=== PATIENT | female | born 1945 | race Caucasian/White ===

== ENCOUNTER 2022-01-26 10:42 | Emergency (ER) | payer MEDICARE, OTHER ==
[~2022-01-26] VITALS: Ht 165.1 cm; Wt 47.6 kg
[2022-01-26 10:42] VITALS: BP 139/86
[~2022-01-26 10:42] MED LIST: ACET-868 PO; ALBU2.5V38 IH; ASCO500C6 PO; DEXT1CAP3 PO; DOCU250C30 PO; IPRA0.2S9 IH; LACT20SO4 PO; LATA2.5D2 EACHEYE; LEVE250T2 PO; MAG30ORA PO; MAGN400O21 PO; MULT-213 PO; NA P133E RC; OXCA300T4 PO; QUET25TA PO; QUET50TA PO
--- NOTE | 2022-01-26 10:59 | NUR ---
RAYMUNDO 87, ENDORSED BY NURSE AT [facility] THAT PT IS "SLEEPIER THAN USUAL" VSS UPON ARRIVAL. PLACED ON BED, NOT RESPONDING TO VERBAL STIMULI- RESPONDING TO PAINFUL STIMULI, BREATHING EVEN AND UNLABORED SATURATING AT 100%RA.
--- NOTE | 2022-01-26 11:00 | NUR ---
PT DNR STATUS, NO ADVANCED DIRECTIVE. POLST PLACED IN THE CHART.
--- NOTE | 2022-01-26 11:05 | NUR ---
DR GUTIERREZ AT BEDSIDE FOR EVAL
--- NOTE | 2022-01-26 11:09 | NUR ---
IV ESTABLISHED R HAND 20G.
--- NOTE | 2022-01-26 11:11 | NUR ---
LUMBER STACKER OPERATOR AT BEDSIDE
--- NOTE | 2022-01-26 11:18 | NUR ---
COVID TEST COLLECTED AND SENT
[2022-01-26 11:39] LABS: BASOPHILS % (AUTO) 0.5 % (0.0-2.0); EOSINOPHILS % (AUTO) 13.2 % (0.0-6.0); HEMATOCRIT 32 % (33-45); HEMOGLOBIN 10.6 g/dL (11.5-14.8); LYMPHOCYTES # (AUTO) 1.4 K/uL (0.8-4.8); LYMPHOCYTES % (AUTO) 28.1 % (20.0-44.0); MEAN CORPUSCULAR HGB CONC 33 g/dl (31.0-36.0); MEAN CORPUSCULAR VOLUME 93 fL (82-100); MONOCYTES # (AUTO) 0.6 K/uL (0.1-1.30); MONOCYTES % (AUTO) 11.7 % (2.0-12.0); NEUTROPHILS # (AUTO) 2.4 K/uL (1.8-8.9); NEUTROPHILS % (AUTO) 46.5 % (43.0-81.0); PLATELET COUNT (AUTO) 202 K/uL (150-450); RED BLOOD CELL COUNT(AUTO) 3.46 MIL/uL (4.0-5.2); WHITE BLOOD COUNT (AUTO) 5.1 K/uL (4.3-11.0)
[2022-01-26] MEDS ORDERED: POLY15DR40 EACHEYE (11:53)
[2022-01-26] MEDS ORDERED: APIX5TAB PO (11:53)
[2022-01-26] MEDS ORDERED: LACT1CAP71 PO (11:53)
[2022-01-26] MEDS ORDERED: CRAN425C6 PO (11:53)
[2022-01-26] MEDS ORDERED: CALC1TAB30 PO (11:53)
[2022-01-26] MEDS ORDERED: GUAI5SYR PO (11:54)
[2022-01-26] MEDS ORDERED: CYCL30DR EACHEYE (11:54)
[2022-01-26] MEDS ORDERED: OMEG100037 PO (11:54)
[2022-01-26] MEDS ORDERED: ACET-868 PO (11:54)
[2022-01-26] MEDS ORDERED: LISI10TA29 PO (11:54)
[2022-01-26] MEDS ORDERED: CRAN3875 PO (11:54)
[2022-01-26] MEDS ORDERED: MELA3TAB41 PO (11:54)
[2022-01-26 11:59] LABS: ALANINE AMINOTRANSFERASE 59 U/L (12-78); ALBUMIN 3.2 g/dL (3.4-5.0); ALKALINE PHOSPHATASE 241 U/L (46-116); ASPARTATE AMINOTRANSFERASE 54 U/L (15-37); BILIRUBIN,DIRECT 0.2 mg/dL (0.0-0.2); BILIRUBIN,TOTAL 0.4 mg/dL (0.2-1.0); CALCIUM, SERUM 8.8 mg/dL (8.5-10.1); CARBON DIOXIDE 23 mmol/L (21-32); CHLORIDE 109 mmol/L (98-107); GLUCOSE 98 mg/dL (74-106); POTASSIUM 4.4 mmol/L (3.5-5.1); SODIUM SERUM 141 mmol/L (136-145); TOTAL PROTEIN, SERUM 6.5 g/dL (6.4-8.2); UREA NITROGEN, BLOOD 37 mg/dL (7-18)
--- NOTE | 2022-01-26 12:57 | NUR ---
[facility] CALLED FOR TRANSPORT, ETA 60 MIN PER ANGIE.
--- NOTE | 2022-01-26 12:58 | NUR ---
URINE SA,PLE SENT TO LAB
--- NOTE | 2022-01-26 13:21 | NUR ---
PT REPORT GIVEN TO SCOTTY MONGE PIPING DESIGNER AT [facility].
[2022-01-26 13:42] LABS: BILIRUBIN,URINE NEGATIVE (NEGATIVE); COLOR,URINE YELLOW (YELLOW); LEUKOCYTE ESTERASE ,URINE 2+ (NEGATIVE); NITRITE, URINE POSITIVE (NEGATIVE); PH,URINE 5.5 (5.0-8.0); PROTEIN,URINE NEGATIVE (NEGATIVE); UGLUCOSE NEGATIVE (NEGATIVE); UROBILINOGEN,URINE 0.2 EU/dL (0.2)
--- NOTE | 2022-01-26 13:45 | NUR ---
EMT AT BEDSIDE TO PICKUP PT
--- NOTE | 2022-01-26 13:48 | NUR ---
IV removed. Catheter intact and site benign. Pressure and 4x4 applied to site. No bleeding noted.
--- NOTE | 2022-01-26 13:55 | NUR ---
Patient discharged to [facility] via [facility] in stable condition, accompanied by 2 political worker. Written and verbal after care instructions given. Pt unable to sign discharge papers; rn bus repair supervisor verbalizes understanding of instruction.
[2022-01-26 14:10] LABS: BACTERIA,URINE Many /HPF (None Seen); SQUAMOUS EPITHELIAL CELL,UR Few /HPF (None Seen)
== END 2022-01-26 13:59 ==
LOC: ER 10:44
DX: R53.1 Weakness (principal); Z20.822 Contact with and (suspected) exposure to COVID-19; Z79.01 Long term (current) use of anticoagulants; Z95.2 Presence of prosthetic heart valve; F03.90 Unspecified dementia, unspecified severity, without behavioral disturbance, psychotic disturbance, mood disturbance, and anxiety; I10 Essential (primary) hypertension; Z88.8 Allergy status to other drugs, medicaments and biological substances
CPT/HCPCS: 36415; 70450-TC; 71045-TC; 80048-TC; 80076-TC; 81001; 82962-TC; 83880; 84484-TC; 85025-TC; 87086-TC; 87186-TC; C9803

== ENCOUNTER 2024-03-21 08:49 | Inpatient (IN) | payer MEDICARE, OTHER ==
[~2024-03-21] VITALS: Ht 160 cm; Wt 48.5 kg
[~2024-03-21 08:49] MED LIST changes: -ALBU2.5V38 IH; +APIX5TAB PO; -ASCO500C6 PO; +CALC1TAB30 PO; +CRAN3875 PO; +CRAN425C6 PO; +CYCL30DR EACHEYE; -DEXT1CAP3 PO; +GUAI5SYR PO; -IPRA0.2S9 IH; +LACT1CAP71 PO; +LISI10TA29 PO; -MAG30ORA PO; +MELA3TAB41 PO; +OMEG100037 PO; +POLY15DR40 EACHEYE; -QUET50TA PO
[2024-03-21] MEDS ORDERED: CALC-261 PO (09:43)
[2024-03-21] MEDS ORDERED: ACET-637 PO (09:43)
[2024-03-21] MEDS ORDERED: HYDR-4209 PO (09:43)
[2024-03-21] MEDS ORDERED: PANT40TA49 PO (09:43)
[2024-03-21] MEDS ORDERED: POLY17PO4 PO (09:43)
[2024-03-21] MEDS ORDERED: LEVE500T20 PO (09:43)
[2024-03-21] MEDS ORDERED: ACETAMINOPHEN 650 MG/SUPP.RECT RC ONE (09:48)
[2024-03-21 09:54] LABS: BASOPHILS % (AUTO) 0.1 % (0.0-2.0); EOSINOPHILS % (AUTO) 0.2 % (0.0-6.0); HEMATOCRIT 33 % (33-45); HEMOGLOBIN 10.7 g/dL (11.5-14.8); LYMPHOCYTES % (AUTO) 4.2 % (20.0-44.0); MEAN CORPUSCULAR HEMOGLOBIN 30 PG (26.0-33.0); MEAN CORPUSCULAR HGB CONC 33 g/dl (31.0-36.0); MEAN CORPUSCULAR VOLUME 93 fL (82-100); MONOCYTES # (AUTO) 1.4 K/uL (0.1-1.30); NEUTROPHILS # (AUTO) 20.9 K/uL (1.8-8.9); NEUTROPHILS % (AUTO) 89.5 % (43.0-81.0); PLATELET COUNT (AUTO) 115 K/uL (150-450); RED BLOOD CELL COUNT(AUTO) 3.52 MIL/uL (4.0-5.2); RED CELL DISTRIBUTION WIDTH 14.8 % (11.5-15.0); WHITE BLOOD COUNT (AUTO) 23.4 K/uL (4.3-11.0)
[2024-03-21 10:00] LABS: CALCIUM, SERUM 8.3 mg/dL (8.5-10.1); CREATININE 4.7 mg/dL (0.6-1.3); POTASSIUM 4.5 mmol/L (3.5-5.1)
[2024-03-21] MEDS: IV NS 0.9% 1,000 ML BAG IV ONE (10:04)
[2024-03-21] MEDS: ACETAMINOPHEN 650 MG/SUPP.RECT RC ONE (10:06)
[2024-03-21 10:07] LABS: INR 1.3 (0.91-1.10); PARTIAL THROMBOPLASTIN TIME 33.9 SEC (24.3-34.3); PROTHROMBIN TIME 13.5 SECS (9.2-11.1)
[2024-03-21 10:08] LABS: LACTIC ACID 1.9 mmol/L (0.4-2.0)
[2024-03-21 10:15] LABS: ALBUMIN 1.9 g/dL (3.4-5.0); BILIRUBIN,TOTAL 2.6 mg/dL (0.2-1.0); TOTAL PROTEIN, SERUM 6.4 g/dL (6.4-8.2)
[2024-03-21] MEDS: PIPERACILLIN /TAZOBACTAM 3.375 G in IV D5W 50 ML IV ONE (10:38)
[2024-03-21] MEDS ORDERED: MAG HYDROX/AL HYDROX/SIMETH 30 ML UDC PO PRN (11:00)
[2024-03-21] MEDS ORDERED: ACETAMINOPHEN 325 MG TABLET PO PRN (11:00)
[2024-03-21] MEDS ORDERED: ONDANSETRON HCL/PF 4 MG/2 ML VIAL IVP PRN (11:00)
[2024-03-21] MEDS ORDERED: MAGNESIUM HYDROXIDE 30 ML UDC PO PRN ×2 (11:00)
[2024-03-21] MEDS ORDERED: Z GUARD REMEDY 4 OZ OINT TP PRN (11:00)
[2024-03-21 11:07] LABS: APPEARANCE,URINE CLOUDY (CLEAR); BILIRUBIN,URINE 2+ (NEGATIVE); BLOOD, URINE 3+ Ery/uL (NEGATIVE); COLOR,URINE YELLOW (YELLOW); KETONES,URINE TRACE mg/dL (NEGATIVE); LEUKOCYTE ESTERASE ,URINE 2+ (NEGATIVE); NITRITE, URINE NEGATIVE (NEGATIVE); PH,URINE 8.5 (5.0-8.0); PROTEIN,URINE 3+ mg/dl (NEGATIVE); UGLUCOSE NEGATIVE (NEGATIVE)
[2024-03-21] MEDS: CEFEPIME 1 GM in IV D5W 50 ML IV SCH (11:08)
[2024-03-21 11:32] LABS: RBC,URINE 51-80 /HPF (0-2); WBC,URINE 21-50 /HPF (0-3)
[2024-03-21 11:33] LABS: ADD URINE CULTURE YES; BACTERIA,URINE Many /HPF (None Seen)
[2024-03-21] MEDS: OXCARBAZEPINE 150 MG TABLET PO SCH (13:00)
[2024-03-21 13:30] VITALS: BP 85/54; TEMP 98.4; O2SAT 96
[2024-03-21] MEDS: IV NS 0.9% 1,000 ML IV PRN (15:19)
[2024-03-21] MEDS: VANCOMYCIN HCL 1.25 GM in IV D5W 250 ML IV ONE (15:24)
[2024-03-21 16:00] VITALS: BP 86/55; TEMP 98.1; O2SAT 98
[2024-03-21] MEDS: PANTOPRAZOLE 40 MG TABLET.DR PO SCH (16:30)
[2024-03-21] MEDS: APIXABAN 5 MG TABLET PO SCH (17:00)
[2024-03-21 20:00] VITALS: BP 101/69; TEMP 97.9; O2SAT 100
[2024-03-21] MEDS: LEVETIRACETAM (250 MG) 250 MG TABLET PO SCH (21:00)
[2024-03-21] MEDS: POLYVINYL ALCOHOL 15 ML BOTTLE EACHEYE SCH (21:34)
[2024-03-21] MEDS: DOCUSATE SODIUM 250 MG CAPSULE PO SCH (22:00)
[2024-03-21] MEDS: LATANOPROST EYE DROP 0.005% 2.5 ML BOTTLE EACHEYE SCH (22:03)
[2024-03-21] MEDS ORDERED: LEVETIRACETAM (500MG) 500 MG/5 ML VIAL IV ONE (23:48)
[2024-03-21] MEDS: LEVETIRACETAM (500MG) 500 MG in IV NS 0.9% 100 ML IV ONE (23:56)
[2024-03-22 07:05] LABS: EOSINOPHILS # (AUTO) 0.4 K/uL (0.0-0.7); EOSINOPHILS % (AUTO) 1.6 % (0.0-6.0); HEMATOCRIT 34 % (33-45); HEMOGLOBIN 10.7 g/dL (11.5-14.8); LYMPHOCYTES # (AUTO) 0.7 K/uL (0.8-4.8); LYMPHOCYTES % (AUTO) 2.8 % (20.0-44.0); MEAN CORPUSCULAR HEMOGLOBIN 30 PG (26.0-33.0); MEAN CORPUSCULAR HGB CONC 32 g/dl (31.0-36.0); MEAN CORPUSCULAR VOLUME 95 fL (82-100); MONOCYTES # (AUTO) 1.3 K/uL (0.1-1.30); MONOCYTES % (AUTO) 4.9 % (2.0-12.0); NEUTROPHILS # (AUTO) 24.2 K/uL (1.8-8.9); NEUTROPHILS % (AUTO) 90.7 % (43.0-81.0); PLATELET COUNT (AUTO) 92 K/uL (150-450); RED BLOOD CELL COUNT(AUTO) 3.56 MIL/uL (4.0-5.2); RED CELL DISTRIBUTION WIDTH 15.6 % (11.5-15.0); WHITE BLOOD COUNT (AUTO) 26.6 K/uL (4.3-11.0)
[2024-03-22 07:16] LABS: CALCIUM, SERUM 8.1 mg/dL (8.5-10.1); CREATININE 4.5 mg/dL (0.6-1.3); PHOSPHORUS 4.4 mg/dL (2.5-4.9); POTASSIUM 4.5 mmol/L (3.5-5.1)
[2024-03-22] MEDS ORDERED: Medication Not On Formulary EA (Omega-3/Dha/Epa/Fish Oil (Fish Oil 1,000 mg Softgel) 2,0 PO SCH (09:00)
[2024-03-22] MEDS ORDERED: Medication Not On Formulary EA (Cran/Vitc/Mannose/Inulin/Brom (Uti-Stat Liquid) 30 ML) PO SCH (09:00)
[2024-03-22] MEDS: MULTIVIT W/MINERALS 1 TAB TABLET PO SCH (09:14)
[2024-03-22] MEDS: CALCIUM CARB 250MG /VITAMIN D 1 UDTAB PO SCH (09:15)
[2024-03-22] MEDS: POLYETHYLENE GLYCOL 3350 17 GM POWD.PACK PO SCH (09:15)
[2024-03-22] MEDS: CEFEPIME 1 GM in IV D5W 50 ML IV SCH (10:53)
[2024-03-22 11:34] LABS: LYMPHOCYTES % (MANUAL) 4 % (16-48); MONOCYTES % (MANUAL) 3 % (0-11.0); NEUTROPHILS % (MANUAL) 93 (42-76); PLATELET ESTIMATE DECREASED
[2024-03-22 15:38] LABS: CALCIUM, SERUM 8.3 mg/dL (8.5-10.1); CREATININE 4.9 mg/dL (0.6-1.3); POTASSIUM 4.7 mmol/L (3.5-5.1)
[2024-03-22] MEDS: ACETAMINOPHEN 650 MG/SUPP.RECT RC PRN (16:13)
[2024-03-22 16:53] LABS: ABG BASE EXCESS -14.5 mmol/L (-2.0-3.0); ABG OXYGEN SATURATION 96.2 % (94.0-98.0); ABG PCO2 16.2 mmHg (32.0-45.0); ABG PH 7.359 (7.350-7.450); ABG PO2 87.3 mmHg (83.0-108.0); ABG TOTAL HEMOGLOBIN 9.8 G/dL (12.0-16.0); COHb 0.6 % (0.5-1.5); MetHb 0.3 % (0.0-1.5); O2Hb 95.3 % (94.0-97.0); SITE, ABG RIGHT RADIAL
[2024-03-22] MEDS: DEXTROSE 50%-WATER 50 ML DISP.SYRIN IVP ONE (17:29)
[2024-03-22] MEDS: SODIUM BICARBONATE SYR 50 MEQ/50 ML DISP.SYRIN IV ONE (17:29)
[2024-03-22] MEDS ORDERED: SODIUM BICARBONATE SYR 100 MEQ in IV NS 0.9% 1,000 ML IV PRN (17:30)
[2024-03-22] MEDS: Sodium Bicarbonate 100 MEQ in IV D5 / 0.2% NACL 1,000 ML IV SCH (18:21)
[2024-03-22 20:00] VITALS: BP 84/45; TEMP 99; O2SAT 96
[2024-03-22] MEDS: IV NS 0.9% 1,000 ML BAG IV ONE (21:10)
[2024-03-23] VITALS: BP 99/57; O2SAT 95
[2024-03-23] MEDS: IV NS 0.9% 1,000 ML BAG IV PRN (01:32)
[2024-03-23] MEDS ORDERED: LEVETIRACETAM (500MG) 500 MG/5 ML VIAL IV ONE (01:49)
[2024-03-23] MEDS: LEVETIRACETAM (500MG) 500 MG in IV NS 0.9% 100 ML IV ONE (02:17)
[2024-03-23 04:55] VITALS: BP 92/55; O2SAT 94
[2024-03-23 06:56] LABS: BASOPHILS % (AUTO) 0.1 % (0.0-2.0); EOSINOPHILS # (AUTO) 0.4 K/uL (0.0-0.7); EOSINOPHILS % (AUTO) 1.7 % (0.0-6.0); HEMATOCRIT 23 % (33-45); HEMOGLOBIN 7.2 g/dL (11.5-14.8); LYMPHOCYTES # (AUTO) 1.2 K/uL (0.8-4.8); LYMPHOCYTES % (AUTO) 4.7 % (20.0-44.0); MEAN CORPUSCULAR HEMOGLOBIN 30 PG (26.0-33.0); MEAN CORPUSCULAR HGB CONC 31 g/dl (31.0-36.0); MEAN CORPUSCULAR VOLUME 96 fL (82-100); MONOCYTES # (AUTO) 0.7 K/uL (0.1-1.30); NEUTROPHILS # (AUTO) 22.6 K/uL (1.8-8.9); NEUTROPHILS % (AUTO) 90.5 % (43.0-81.0); PLATELET COUNT (AUTO) 56 K/uL (150-450); RED BLOOD CELL COUNT(AUTO) 2.38 MIL/uL (4.0-5.2); RED CELL DISTRIBUTION WIDTH 15.7 % (11.5-15.0)
[2024-03-23 08:41] VITALS: BP 90/56; TEMP 97.5; O2SAT 95
[2024-03-23 13:26] LABS: LYMPHOCYTES % (MANUAL) 3 % (16-48); MONOCYTES % (MANUAL) 1 % (0-11.0); NEUTROPHILS % (MANUAL) 96 (42-76); PLATELET ESTIMATE DECREASED
[2024-03-23 13:29] LABS: STOMATOCYTES 1+; TARGET CELLS 1+
[2024-03-23] MEDS: LEVETIRACETAM (500MG) 500 MG in IV NS 0.9% 100 ML IV SCH (13:29)
[2024-03-23 15:27] LABS: ALBUMIN 1.5 g/dL (3.4-5.0); BILIRUBIN,TOTAL 2.5 mg/dL (0.2-1.0); CALCIUM, SERUM 7.6 mg/dL (8.5-10.1); CREATININE 5.1 mg/dL (0.6-1.3); MAGNESIUM 2.6 mg/dL (1.8-2.4); PHOSPHORUS 4.3 mg/dL (2.5-4.9); POTASSIUM 3.9 mmol/L (3.5-5.1); TOTAL PROTEIN, SERUM 5.3 g/dL (6.4-8.2)
[2024-03-23 16:07] VITALS: BP 91/50; TEMP 98.2; O2SAT 97
[2024-03-23] MEDS: IV D5/0.45 NACL 1,000 ML IV SCH (16:20)
[2024-03-23 20:00] VITALS: BP 103/63; TEMP 97.5; O2SAT 97
[2024-03-24] MEDS ORDERED: LEVETIRACETAM (500MG) 500 MG/5 ML VIAL IV ONE (01:01)
[2024-03-24 04:07] LABS: HEPATITIS B SURFACE AB Non Reactive (.)
[2024-03-24 07:46] LABS: BASOPHILS % (AUTO) 0.1 % (0.0-2.0); EOSINOPHILS # (AUTO) 0.2 K/uL (0.0-0.7); EOSINOPHILS % (AUTO) 0.6 % (0.0-6.0); HEMATOCRIT 29 % (33-45); HEMOGLOBIN 9.5 g/dL (11.5-14.8); LYMPHOCYTES # (AUTO) 1.3 K/uL (0.8-4.8); LYMPHOCYTES % (AUTO) 4.9 % (20.0-44.0); MEAN CORPUSCULAR HEMOGLOBIN 30 PG (26.0-33.0); MEAN CORPUSCULAR HGB CONC 33 g/dl (31.0-36.0); MEAN CORPUSCULAR VOLUME 92 fL (82-100); MONOCYTES # (AUTO) 2.2 K/uL (0.1-1.30); MONOCYTES % (AUTO) 8.3 % (2.0-12.0); NEUTROPHILS # (AUTO) 22.8 K/uL (1.8-8.9); NEUTROPHILS % (AUTO) 86.1 % (43.0-81.0); PLATELET COUNT (AUTO) 53 K/uL (150-450); RED BLOOD CELL COUNT(AUTO) 3.18 MIL/uL (4.0-5.2); RED CELL DISTRIBUTION WIDTH 14.8 % (11.5-15.0); WHITE BLOOD COUNT (AUTO) 26.5 K/uL (4.3-11.0)
[2024-03-24 07:48] LABS: CALCIUM, SERUM 8.2 mg/dL (8.5-10.1); POTASSIUM 4.5 mmol/L (3.5-5.1)
[2024-03-24 08:00] VITALS: BP 98/57; TEMP 98.1; O2SAT 92
[2024-03-24 08:06] LABS: COMPLEMENT C3, SERUM 83 mg/dL (82-167); COMPLEMENT C4, SERUM 22 mg/dL (12-38)
[2024-03-24 09:23] LABS: EOSINOPHILS % (MANUAL) 1 % (0-4); LYMPHOCYTES % (MANUAL) 7 % (16-48); MONOCYTES % (MANUAL) 5 % (0-11.0); NEUTROPHILS % (MANUAL) 87 (42-76)
[2024-03-24 09:24] LABS: PLATELET ESTIMATE DECREASED
[2024-03-24 09:25] LABS: ANISOCYTOSIS 1+
[2024-03-24] MEDS: MEROPENEM 500 MG in IV NS 0.9% 50 ML IV SCH (10:41)
[2024-03-24 11:06] LABS: PTH, INTACT 46 pg/mL (15-65)
[2024-03-24] MEDS ORDERED: VANCOMYCIN 750 MG in IV D5W 250 ML IV SCH (15:00)
[2024-03-24] MEDS: IV D5/0.45 NACL 1,000 ML IV PRN (18:46)
[2024-03-24 20:00] VITALS: BP 100/60; TEMP 98.8; O2SAT 98
[2024-03-24 21:03] LABS: HIV-1 p24 ANTIGEN NON REACTIVE (NONREACTIVE); HIV-1/2 ANTIBODY NON REACTIVE (NONREACTIVE)
[2024-03-25 07:46] LABS: CALCIUM, SERUM 7.3 mg/dL (8.5-10.1); CREATININE 3.6 mg/dL (0.6-1.3); POTASSIUM 3.5 mmol/L (3.5-5.1)
[2024-03-25 08:33] LABS: BASOPHILS % (AUTO) 0.2 % (0.0-2.0); EOSINOPHILS # (AUTO) 0.5 K/uL (0.0-0.7); EOSINOPHILS % (AUTO) 1.8 % (0.0-6.0); HEMATOCRIT 26 % (33-45); HEMOGLOBIN 8.8 g/dL (11.5-14.8); LYMPHOCYTES # (AUTO) 1.4 K/uL (0.8-4.8); LYMPHOCYTES % (AUTO) 4.9 % (20.0-44.0); MEAN CORPUSCULAR HEMOGLOBIN 31 PG (26.0-33.0); MEAN CORPUSCULAR HGB CONC 34 g/dl (31.0-36.0); MEAN CORPUSCULAR VOLUME 91 fL (82-100); MONOCYTES # (AUTO) 2.5 K/uL (0.1-1.30); MONOCYTES % (AUTO) 8.4 % (2.0-12.0); NEUTROPHILS % (AUTO) 84.7 % (43.0-81.0); RED BLOOD CELL COUNT(AUTO) 2.85 MIL/uL (4.0-5.2); RED CELL DISTRIBUTION WIDTH 14.3 % (11.5-15.0); WHITE BLOOD COUNT (AUTO) 29.5 K/uL (4.3-11.0)
[2024-03-25 08:41] VITALS: BP 80/47; TEMP 98.1; O2SAT 94
[2024-03-25 08:54] LABS: PLATELET COUNT (AUTO) 43 K/uL (150-450)
[2024-03-25 09:00] LABS: EOSINOPHILS % (MANUAL) 1 % (0-4); LYMPHOCYTES % (MANUAL) 10 % (16-48); MONOCYTES % (MANUAL) 9 % (0-11.0); NEUTROPHILS % (MANUAL) 80 (42-76)
[2024-03-25 09:01] LABS: PLATELET ESTIMATE DECREASED
[2024-03-25 09:02] LABS: ANISOCYTOSIS 1+; TARGET CELLS 1+
[2024-03-25] MEDS: HYDROCORTISONE SOD SUCCINATE 100 MG/2 ML VIAL IV SCH (12:21)
[2024-03-25 16:14] VITALS: BP 90/50; TEMP 97.4; O2SAT 99
[2024-03-25] MEDS: NEPRO 1,000 ML BOTTLE GT PRN (17:18)
[2024-03-25 20:00] VITALS: BP 110/80; TEMP 97.5; O2SAT 96
[2024-03-26] VITALS: BP 93/62; TEMP 97.3; O2SAT 100
[2024-03-26 04:00] VITALS: BP 100/80; TEMP 98.2; O2SAT 100
[2024-03-26 08:00] VITALS: BP 88/52; O2SAT 90
[2024-03-26] MEDS: VANCOMYCIN 1 GM in IV D5W 250ml IV ONE (08:33)
[2024-03-26 16:00] VITALS: BP 80/50; TEMP 97.4; O2SAT 90
[2024-03-26 16:58] LABS: BASOPHILS % (AUTO) 0.1 % (0.0-2.0); EOSINOPHILS % (AUTO) 0.1 % (0.0-6.0); HEMATOCRIT 28 % (33-45); HEMOGLOBIN 9.1 g/dL (11.5-14.8); LYMPHOCYTES % (AUTO) 2.3 % (20.0-44.0); MEAN CORPUSCULAR HEMOGLOBIN 30 PG (26.0-33.0); MEAN CORPUSCULAR HGB CONC 33 g/dl (31.0-36.0); MEAN CORPUSCULAR VOLUME 92 fL (82-100); MONOCYTES # (AUTO) 1.3 K/uL (0.1-1.30); MONOCYTES % (AUTO) 3.1 % (2.0-12.0); NEUTROPHILS # (AUTO) 41.6 K/uL (1.8-8.9); NEUTROPHILS % (AUTO) 94.4 % (43.0-81.0); PLATELET COUNT (AUTO) 57 K/uL (150-450); RED BLOOD CELL COUNT(AUTO) 3.04 MIL/uL (4.0-5.2)
[2024-03-26 17:06] LABS: CALCIUM, SERUM 7.4 mg/dL (8.5-10.1); CREATININE 4.2 mg/dL (0.6-1.3); POTASSIUM 3.8 mmol/L (3.5-5.1)
[2024-03-26 17:49] LABS: BAND % (MANUAL) 1 % (0.0-5.0); BASOPHILS % (MANUAL) 0 % (0.0-2.0); EOSINOPHILS % (MANUAL) 0 % (0-4); LYMPHOCYTES % (MANUAL) 3 % (16-48); MONOCYTES % (MANUAL) 2 % (0-11.0); NEUTROPHILS % (MANUAL) 94 (42-76); PLATELET ESTIMATE DECREASED
[2024-03-26 20:00] VITALS: BP_SYST 82; BP_SYST 86; BP_DIAS 50; BP_DIAS 69; TEMP 97.3; O2SAT 99
[2024-03-26 21:00] VITALS: BP 97/60; TEMP 97.3; O2SAT 99
[2024-03-26 23:08] LABS: HEPATITIS Be AB Non Reactive (Negative)
[2024-03-27] VITALS: BP 97/57; TEMP 97.3; O2SAT 96
[2024-03-27 02:08] LABS: HEPATITIS B CORE AB, IgM Negative (Negative); HEPATITIS B CORE AB, TOTAL Negative (Negative)
[2024-03-27 04:00] VITALS: BP 97/55; TEMP 97.7; O2SAT 100
[2024-03-27 07:30] VITALS: BP 95/59; TEMP 97.5; O2SAT 96
[2024-03-27 11:05] LABS: BASOPHILS % (AUTO) 0.1 % (0.0-2.0); EOSINOPHILS % (AUTO) 0.1 % (0.0-6.0); HEMATOCRIT 25 % (33-45); HEMOGLOBIN 8.4 g/dL (11.5-14.8); LYMPHOCYTES # (AUTO) 0.9 K/uL (0.8-4.8); LYMPHOCYTES % (AUTO) 2.6 % (20.0-44.0); MEAN CORPUSCULAR HEMOGLOBIN 30 PG (26.0-33.0); MEAN CORPUSCULAR HGB CONC 33 g/dl (31.0-36.0); MEAN CORPUSCULAR VOLUME 90 fL (82-100); MONOCYTES # (AUTO) 1.3 K/uL (0.1-1.30); MONOCYTES % (AUTO) 3.8 % (2.0-12.0); NEUTROPHILS # (AUTO) 33.1 K/uL (1.8-8.9); NEUTROPHILS % (AUTO) 93.4 % (43.0-81.0); PLATELET COUNT (AUTO) 55 K/uL (150-450); RED BLOOD CELL COUNT(AUTO) 2.78 MIL/uL (4.0-5.2); RED CELL DISTRIBUTION WIDTH 14.3 % (11.5-15.0)
[2024-03-27 11:17] LABS: CALCIUM, SERUM 7.3 mg/dL (8.5-10.1); CREATININE 2.7 mg/dL (0.6-1.3)
[2024-03-27 11:21] LABS: WHITE BLOOD COUNT (AUTO) 35.4 K/uL (4.3-11.0)
[2024-03-27] MEDS: ALBUMIN 25% 25 GM in PREMIX 1 EA IV PRN (11:26)
[2024-03-27 11:51] LABS: LYMPHOCYTES % (MANUAL) 3 % (16-48); MONOCYTES % (MANUAL) 5 % (0-11.0); MYELOCYTES % 1 % (0-0); POTASSIUM 2.7 mmol/L (3.5-5.1)
[2024-03-27 11:54] LABS: ANISOCYTOSIS 1+; BAND % (MANUAL) 1 % (0.0-5.0); NEUTROPHILS % (MANUAL) 90 (42-76); PLATELET ESTIMATE DECREASED
[2024-03-27] MEDS: VANCOMYCIN HCL 125 MG/2.5 ML ORAL.SUSP NG SCH (12:12)
[2024-03-27 16:00] VITALS: BP 90/60; TEMP 97.9; O2SAT 96
[2024-03-27] MEDS: VANCOMYCIN POST DIALYSIS 500MG IV PRN (17:43)
[2024-03-27 20:10] VITALS: BP 98/57; TEMP 98.4; O2SAT 99
[2024-03-27] MEDS: LEVETIRACETAM SOL (5 ML) 100 MG/ML UDC GT SCH (21:04)
[2024-03-28 05:09] VITALS: BP_SYST 90; BP_SYST 94; BP_DIAS 50; BP_DIAS 61; TEMP 97.9; O2SAT 96; O2SAT 97
[2024-03-28 07:00] VITALS: BP 77/54; TEMP 97.7; O2SAT 100
[2024-03-28 09:07] LABS: *SPE A/G RATIO 0.7 (0.7-1.7); *SPE ALBUMIN 1.4 g/dL (2.9-4.4); *SPE ALPHA-1-GLOBULIN 0.2 g/dL (0.0-0.4); *SPE ALPHA-2-GLOBULIN 0.4 g/dL (0.4-1.0); *SPE BETA GLOBULIN 0.5 g/dL (0.7-1.3); *SPE GLOBULIN, TOTAL 2.1 g/dL (2.2-3.9); *SPE M-SPIKE 0.7 g/dL (Not Observed); *SPE PROTEIN TOTAL 3.5 g/dL (6.0-8.5); *SPEGAMMA GLOBULIN 1.1 g/dL (0.4-1.8)
[2024-03-28 10:11] VITALS: BP 100/83; TEMP 97.9; O2SAT 100
[2024-03-28 14:11] LABS: *ANA ANTI-CENTROMERE B AB <0.2 AI (0.0-0.9); *ANA ANTI-DNA(DS) AB, QN <1 IU/mL (0-9); *ANA ANTI-JO-1 <0.2 AI (0.0-0.9); *ANA ANTICHROMATIN ANTIBODY <0.2 AI (0.0-0.9); *ANA RNP ANTIBODIES <0.2 AI (0.0-0.9); *ANA SJOGREN'S ANTI-SS-A 2.6 AI (0.0-0.9); *ANA SJOGREN'S ANTI-SS-B <0.2 AI (0.0-0.9); *ANAANTI-SCLERODERMA-70 AB <0.2 AI (0.0-0.9); *ANASMITH AB <0.2 AI (0.0-0.9)
[2024-03-28 18:20] LABS: CALCIUM, SERUM 7.3 mg/dL (8.5-10.1); CREATININE 3.1 mg/dL (0.6-1.3); MAGNESIUM 1.7 mg/dL (1.8-2.4); PHOSPHORUS 3.8 mg/dL (2.5-4.9); POTASSIUM 3.1 mmol/L (3.5-5.1)
[2024-03-28 18:24] LABS: BASOPHILS # (AUTO) 0.1 K/uL (0.0-0.2); BASOPHILS % (AUTO) 0.2 % (0.0-2.0); EOSINOPHILS % (AUTO) 0.1 % (0.0-6.0); HEMATOCRIT 25 % (33-45); HEMOGLOBIN 8.1 g/dL (11.5-14.8); LYMPHOCYTES # (AUTO) 0.9 K/uL (0.8-4.8); LYMPHOCYTES % (AUTO) 1.7 % (20.0-44.0); MEAN CORPUSCULAR HEMOGLOBIN 30 PG (26.0-33.0); MEAN CORPUSCULAR HGB CONC 32 g/dl (31.0-36.0); MEAN CORPUSCULAR VOLUME 92 fL (82-100); MONOCYTES # (AUTO) 1.5 K/uL (0.1-1.30); MONOCYTES % (AUTO) 2.8 % (2.0-12.0); NEUTROPHILS # (AUTO) 52.1 K/uL (1.8-8.9); NEUTROPHILS % (AUTO) 95.2 % (43.0-81.0); PLATELET COUNT (AUTO) 74 K/uL (150-450); RED BLOOD CELL COUNT(AUTO) 2.71 MIL/uL (4.0-5.2); RED CELL DISTRIBUTION WIDTH 14.2 % (11.5-15.0)
[2024-03-28 18:27] LABS: WHITE BLOOD COUNT (AUTO) 54.7 K/uL (4.3-11.0)
[2024-03-28 19:16] LABS: ANISOCYTOSIS 1+; HYPOCHROMASIA 1+; LYMPHOCYTES % (MANUAL) 2 % (16-48); MONOCYTES % (MANUAL) 1 % (0-11.0); NEUTROPHILS % (MANUAL) 97 (42-76); PLATELET ESTIMATE DECREASED
[2024-03-28 19:17] LABS: TARGET CELLS 1+
[2024-03-28 23:15] VITALS: BP 103/56; TEMP 97.5; O2SAT 95
[2024-03-29 08:00] VITALS: BP 142/66; TEMP 97.7; O2SAT 97
[2024-03-29 15:03] LABS: BASOPHILS % (AUTO) 0.1 % (0.0-2.0); EOSINOPHILS % (AUTO) 0.1 % (0.0-6.0); HEMATOCRIT 22 % (33-45); HEMOGLOBIN 7.1 g/dL (11.5-14.8); LYMPHOCYTES # (AUTO) 0.8 K/uL (0.8-4.8); LYMPHOCYTES % (AUTO) 2.5 % (20.0-44.0); MEAN CORPUSCULAR HEMOGLOBIN 30 PG (26.0-33.0); MEAN CORPUSCULAR HGB CONC 33 g/dl (31.0-36.0); MEAN CORPUSCULAR VOLUME 91 fL (82-100); MONOCYTES # (AUTO) 1.4 K/uL (0.1-1.30); MONOCYTES % (AUTO) 4.2 % (2.0-12.0); NEUTROPHILS # (AUTO) 30.6 K/uL (1.8-8.9); NEUTROPHILS % (AUTO) 93.1 % (43.0-81.0); PLATELET COUNT (AUTO) 77 K/uL (150-450); RED BLOOD CELL COUNT(AUTO) 2.38 MIL/uL (4.0-5.2); RED CELL DISTRIBUTION WIDTH 14.1 % (11.5-15.0)
[2024-03-29 15:08] LABS: CALCIUM, SERUM 7.3 mg/dL (8.5-10.1); CREATININE 2.4 mg/dL (0.6-1.3); MAGNESIUM 1.6 mg/dL (1.8-2.4); PHOSPHORUS 3.9 mg/dL (2.5-4.9)
[2024-03-29 15:17] LABS: WHITE BLOOD COUNT (AUTO) 32.9 K/uL (4.3-11.0)
[2024-03-29 15:38] LABS: POTASSIUM 2.8 mmol/L (3.5-5.1)
[2024-03-29 15:52] LABS: ALBUMIN 2.1 g/dL (3.4-5.0); BILIRUBIN,DIRECT 1.1 mg/dL (0.0-0.2); BILIRUBIN,TOTAL 1.9 mg/dL (0.2-1.0); TOTAL PROTEIN, SERUM 5.2 g/dL (6.4-8.2)
[2024-03-29] MEDS: POTASSIUM CL. PREMIX PERIPHER. 50 ML IV SCH (16:42)
[2024-03-29] MEDS ORDERED: LIDOCAINE 1%-EPI 1:100,000 20 ML VIAL ONE (16:57)
[2024-03-29] MEDS ORDERED: BUPIVACAINE 0.5 % PF 150 MG/30 ML VIAL ONE (16:57)
[2024-03-29] MEDS ORDERED: INDOCYANINE GREEN 25 MG/VIAL VIAL IJ ONE (17:01)
[2024-03-29] MEDS ORDERED: ALBUMIN 5% 500 ML IV ONE (17:03)
[2024-03-29] MEDS ORDERED: LIDOCAINE 2% JEL UROJET 10 ML MM ONE (17:03)
[2024-03-29] MEDS ORDERED: FAMOTIDINE/PF INJ 20 MG/2 ML VIAL IV ONE (17:04)
[2024-03-29] MEDS ORDERED: FENTANYL PF 100MCG/2ML AMPUL ONE (17:04)
[2024-03-29] MEDS ORDERED: ROCURONIUM BROMIDE 50 MG/5 ML ONE (17:04)
[2024-03-29] MEDS ORDERED: Magnesium 1 GM/2 ML VIAL ONE (17:05)
[2024-03-29 17:34] LABS: LYMPHOCYTES % (MANUAL) 1 % (16-48); MONOCYTES % (MANUAL) 4 % (0-11.0); NEUTROPHILS % (MANUAL) 95 (42-76)
[2024-03-29 17:35] LABS: ANISOCYTOSIS 1+; HYPOCHROMASIA 1+; PLATELET ESTIMATE DECREASED; TARGET CELLS 1+
[2024-03-29] MEDS ORDERED: SEVOFLURANE 250 ML BOTTLE IH ONE (18:05)
[2024-03-29] MEDS ORDERED: CELLULOSE,OXIDIZED 1 EACH EACH MC ONE (18:24)
[2024-03-29] MEDS ORDERED: CELLULOSE,OXIDIZED 1 EA PACK MC ONE (18:24)
[2024-03-29] MEDS ORDERED: CELLULOSE,OXIDIZED 1 PKT EACH MC ONE (18:24)
[2024-03-29 18:58] LABS: INR 1.3 (0.91-1.10); PARTIAL THROMBOPLASTIN TIME 35.9 SEC (24.3-34.3); PROTHROMBIN TIME 13.5 SECS (9.2-11.1)
[2024-03-29] MEDS ORDERED: ONDANSETRON HCL/PF 4 MG/2 ML VIAL IVP PRN (19:30)
[2024-03-29 20:00] VITALS: BP 120/75; TEMP 97.6; O2SAT 98
[2024-03-30] VITALS (10 sets, daily range): BP systolic 106–134; BP diastolic 60–83; TEMP 97.5–98.6; O2SAT 96–99
[2024-03-30 08:13] LABS: CALCIUM, SERUM 7.3 mg/dL (8.5-10.1); CREATININE 2.7 mg/dL (0.6-1.3); MAGNESIUM 2.2 mg/dL (1.8-2.4); PHOSPHORUS 4.3 mg/dL (2.5-4.9); POTASSIUM 3.4 mmol/L (3.5-5.1)
[2024-03-30 08:21] LABS: LYMPHOCYTES # (AUTO) 0.8 K/uL (0.8-4.8); LYMPHOCYTES % (AUTO) 2.2 % (20.0-44.0); MEAN CORPUSCULAR HEMOGLOBIN 30 PG (26.0-33.0); MEAN CORPUSCULAR HGB CONC 33 g/dl (31.0-36.0); MEAN CORPUSCULAR VOLUME 92 fL (82-100); MONOCYTES # (AUTO) 1.2 K/uL (0.1-1.30); MONOCYTES % (AUTO) 3.1 % (2.0-12.0); NEUTROPHILS # (AUTO) 35.5 K/uL (1.8-8.9); NEUTROPHILS % (AUTO) 94.7 % (43.0-81.0); PLATELET COUNT (AUTO) 76 K/uL (150-450); RED CELL DISTRIBUTION WIDTH 14.4 % (11.5-15.0)
[2024-03-30 08:56] LABS: RED BLOOD CELL COUNT(AUTO) 1.97 MIL/uL (4.0-5.2)
[2024-03-30 08:58] LABS: HEMATOCRIT 18 % (33-45); WHITE BLOOD COUNT (AUTO) 37.5 K/uL (4.3-11.0)
[2024-03-30 09:01] LABS: ALBUMIN 2.3 g/dL (3.4-5.0); BILIRUBIN,TOTAL 1.6 mg/dL (0.2-1.0); TOTAL PROTEIN, SERUM 4.9 g/dL (6.4-8.2)
[2024-03-30 11:09] LABS: LYMPHOCYTES % (MANUAL) 2 % (16-48); MONOCYTES % (MANUAL) 2 % (0-11.0); NEUTROPHILS % (MANUAL) 96 (42-76)
[2024-03-30 11:10] LABS: PLATELET ESTIMATE DECRE; STOMATOCYTES 1+; TARGET CELLS 1+
[2024-03-30] MEDS: POTASSIUM CHLORIDE 20 MEQ TAB.PRT.SR PO ONE (12:15)
[2024-03-30 19:09] LABS: *HCV QUANTITATION 1480000 IU/mL (.)
[2024-03-31 01:21] LABS: HEMOGLOBIN 8.9 g/dL (11.5-14.8)
[2024-03-31 06:24] LABS: BASOPHILS % (AUTO) 0.2 % (0.0-2.0); EOSINOPHILS % (AUTO) 0.1 % (0.0-6.0); HEMATOCRIT 27 % (33-45); HEMOGLOBIN 9.2 g/dL (11.5-14.8); LYMPHOCYTES # (AUTO) 0.8 K/uL (0.8-4.8); LYMPHOCYTES % (AUTO) 3.7 % (20.0-44.0); MEAN CORPUSCULAR HEMOGLOBIN 32 PG (26.0-33.0); MEAN CORPUSCULAR HGB CONC 35 g/dl (31.0-36.0); MEAN CORPUSCULAR VOLUME 92 fL (82-100); MONOCYTES # (AUTO) 1.6 K/uL (0.1-1.30); NEUTROPHILS # (AUTO) 19.9 K/uL (1.8-8.9); PLATELET COUNT (AUTO) 86 K/uL (150-450); RED BLOOD CELL COUNT(AUTO) 2.89 MIL/uL (4.0-5.2); RED CELL DISTRIBUTION WIDTH 13.9 % (11.5-15.0); WHITE BLOOD COUNT (AUTO) 22.3 K/uL (4.3-11.0)
[2024-03-31 06:51] LABS: CALCIUM, SERUM 7.7 mg/dL (8.5-10.1); CREATININE 2.2 mg/dL (0.6-1.3); PHOSPHORUS 3.6 mg/dL (2.5-4.9); POTASSIUM 3.9 mmol/L (3.5-5.1)
[2024-03-31 08:00] VITALS: BP 136/87; TEMP 98.8; O2SAT 99
[2024-03-31 14:00] LABS: LYMPHOCYTES % (MANUAL) 8 % (16-48); MONOCYTES % (MANUAL) 4 % (0-11.0); NEUTROPHILS % (MANUAL) 88 (42-76)
[2024-03-31 14:01] LABS: ANISOCYTOSIS 1+; PLATELET ESTIMATE DECREASED
[2024-03-31 16:00] VITALS: BP 127/95; TEMP 99; O2SAT 96
[2024-03-31 20:00] VITALS: BP 129/83; TEMP 97.9; O2SAT 99
[2024-03-31] MEDS: LEVETIRACETAM (250 MG) 250 MG TABLET PO SCH (21:54)
[2024-04-01 07:30] VITALS: BP 122/70; TEMP 97.5; O2SAT 99
[2024-04-01 07:30] LABS: BASOPHILS % (AUTO) 0.1 % (0.0-2.0); HEMATOCRIT 26 % (33-45); HEMOGLOBIN 8.9 g/dL (11.5-14.8); LYMPHOCYTES # (AUTO) 0.9 K/uL (0.8-4.8); LYMPHOCYTES % (AUTO) 5.2 % (20.0-44.0); MEAN CORPUSCULAR HEMOGLOBIN 32 PG (26.0-33.0); MEAN CORPUSCULAR HGB CONC 34 g/dl (31.0-36.0); MEAN CORPUSCULAR VOLUME 92 fL (82-100); MONOCYTES # (AUTO) 1.3 K/uL (0.1-1.30); MONOCYTES % (AUTO) 7.1 % (2.0-12.0); NEUTROPHILS # (AUTO) 15.7 K/uL (1.8-8.9); NEUTROPHILS % (AUTO) 87.6 % (43.0-81.0); PLATELET COUNT (AUTO) 95 K/uL (150-450); RED CELL DISTRIBUTION WIDTH 14.3 % (11.5-15.0); WHITE BLOOD COUNT (AUTO) 17.9 K/uL (4.3-11.0)
[2024-04-01 07:32] LABS: CALCIUM, SERUM 7.6 mg/dL (8.5-10.1); CREATININE 2.8 mg/dL (0.6-1.3); PHOSPHORUS 4.9 mg/dL (2.5-4.9)
[2024-04-01 09:59] LABS: LYMPHOCYTES % (MANUAL) 3 % (16-48); MONOCYTES % (MANUAL) 6 % (0-11.0); NEUTROPHILS % (MANUAL) 91 (42-76); PLATELET ESTIMATE DECREASED
[2024-04-01 10:01] LABS: ANISOCYTOSIS 1+
[2024-04-01 16:00] VITALS: BP 96/60; TEMP 98.8; O2SAT 94
[2024-04-01 20:00] VITALS: BP 103/63; TEMP 97.5; O2SAT 99
[2024-04-02 08:00] VITALS: BP 112/74; TEMP 97.7; O2SAT 100
[2024-04-02 08:21] LABS: BASOPHILS % (AUTO) 0.1 % (0.0-2.0); EOSINOPHILS # (AUTO) 0.1 K/uL (0.0-0.7); EOSINOPHILS % (AUTO) 0.3 % (0.0-6.0); HEMATOCRIT 27 % (33-45); HEMOGLOBIN 9.2 g/dL (11.5-14.8); LYMPHOCYTES # (AUTO) 1.4 K/uL (0.8-4.8); LYMPHOCYTES % (AUTO) 7.3 % (20.0-44.0); MEAN CORPUSCULAR HEMOGLOBIN 32 PG (26.0-33.0); MEAN CORPUSCULAR HGB CONC 34 g/dl (31.0-36.0); MEAN CORPUSCULAR VOLUME 94 fL (82-100); MONOCYTES # (AUTO) 1.9 K/uL (0.1-1.30); MONOCYTES % (AUTO) 9.7 % (2.0-12.0); NEUTROPHILS # (AUTO) 16.2 K/uL (1.8-8.9); NEUTROPHILS % (AUTO) 82.6 % (43.0-81.0); PLATELET COUNT (AUTO) 122 K/uL (150-450); RED BLOOD CELL COUNT(AUTO) 2.87 MIL/uL (4.0-5.2); RED CELL DISTRIBUTION WIDTH 14.7 % (11.5-15.0); WHITE BLOOD COUNT (AUTO) 19.7 K/uL (4.3-11.0)
[2024-04-02 08:56] LABS: CALCIUM, SERUM 7.5 mg/dL (8.5-10.1); CREATININE 3.5 mg/dL (0.6-1.3); POTASSIUM 4.3 mmol/L (3.5-5.1)
[2024-04-02 11:47] LABS: MAGNESIUM 2.1 mg/dL (1.8-2.4); PHOSPHORUS 5.6 mg/dL (2.5-4.9)
[2024-04-02 16:00] VITALS: BP 118/75; TEMP 97.3; O2SAT 97
[2024-04-02] MEDS: VANCOMYCIN 1 GM in IV D5W 250ml IV ONE (16:21)
[2024-04-02 20:00] VITALS: BP 116/68; TEMP 97.7; O2SAT 96
[2024-04-02 22:58] VITALS: BP 116/68; TEMP 97.7; O2SAT 96
[2024-04-03 08:00] VITALS: BP 155/101; TEMP 98.2; O2SAT 92
[2024-04-03] MEDS ORDERED: NEPRO VAN 237 ML CAN PO PRN (09:00)
[2024-04-03 10:37] LABS: BASOPHILS % (AUTO) 0.2 % (0.0-2.0); EOSINOPHILS % (AUTO) 0.1 % (0.0-6.0); HEMATOCRIT 25 % (33-45); HEMOGLOBIN 8.4 g/dL (11.5-14.8); LYMPHOCYTES # (AUTO) 1.2 K/uL (0.8-4.8); MEAN CORPUSCULAR HEMOGLOBIN 31 PG (26.0-33.0); MEAN CORPUSCULAR HGB CONC 33 g/dl (31.0-36.0); MEAN CORPUSCULAR VOLUME 92 fL (82-100); MONOCYTES # (AUTO) 1.3 K/uL (0.1-1.30); MONOCYTES % (AUTO) 8.7 % (2.0-12.0); NEUTROPHILS # (AUTO) 12.5 K/uL (1.8-8.9); PLATELET COUNT (AUTO) 119 K/uL (150-450); RED BLOOD CELL COUNT(AUTO) 2.75 MIL/uL (4.0-5.2); RED CELL DISTRIBUTION WIDTH 14.8 % (11.5-15.0); WHITE BLOOD COUNT (AUTO) 15.1 K/uL (4.3-11.0)
[2024-04-03 11:15] LABS: CREATININE 2.9 mg/dL (0.6-1.3); PHOSPHORUS 5.1 mg/dL (2.5-4.9)
[2024-04-03 16:00] VITALS: BP 92/49; TEMP 98.6; O2SAT 96
[2024-04-03 20:00] VITALS: BP 92/70; TEMP 98.4; O2SAT 98
[2024-04-04 08:00] VITALS: BP 113/64; TEMP 97.6; O2SAT 97
[2024-04-04 12:19] LABS: ALBUMIN 2.4 g/dL (3.4-5.0); BILIRUBIN,TOTAL 1.6 mg/dL (0.2-1.0); CALCIUM, SERUM 7.5 mg/dL (8.5-10.1); CREATININE 3.6 mg/dL (0.6-1.3); MAGNESIUM 1.9 mg/dL (1.8-2.4); PHOSPHORUS 5.4 mg/dL (2.5-4.9); POTASSIUM 3.9 mmol/L (3.5-5.1); TOTAL PROTEIN, SERUM 5.3 g/dL (6.4-8.2)
[2024-04-04 12:21] LABS: BASOPHILS % (AUTO) 0.1 % (0.0-2.0); EOSINOPHILS % (AUTO) 0.1 % (0.0-6.0); HEMATOCRIT 24 % (33-45); HEMOGLOBIN 8.1 g/dL (11.5-14.8); LYMPHOCYTES # (AUTO) 0.8 K/uL (0.8-4.8); LYMPHOCYTES % (AUTO) 5.1 % (20.0-44.0); MEAN CORPUSCULAR HEMOGLOBIN 32 PG (26.0-33.0); MEAN CORPUSCULAR HGB CONC 34 g/dl (31.0-36.0); MEAN CORPUSCULAR VOLUME 93 fL (82-100); MONOCYTES # (AUTO) 1.3 K/uL (0.1-1.30); MONOCYTES % (AUTO) 8.7 % (2.0-12.0); NEUTROPHILS # (AUTO) 13.2 K/uL (1.8-8.9); PLATELET COUNT (AUTO) 115 K/uL (150-450); RED BLOOD CELL COUNT(AUTO) 2.53 MIL/uL (4.0-5.2); RED CELL DISTRIBUTION WIDTH 15.5 % (11.5-15.0); WHITE BLOOD COUNT (AUTO) 15.3 K/uL (4.3-11.0)
[2024-04-04 20:00] VITALS: BP 130/75; TEMP 97.3; O2SAT 97
[2024-04-05 08:00] VITALS: BP 118/55; TEMP 97.5; O2SAT 100
[2024-04-05 09:38] LABS: CALCIUM, SERUM 7.3 mg/dL (8.5-10.1); CREATININE 2.8 mg/dL (0.6-1.3); POTASSIUM 3.7 mmol/L (3.5-5.1)
[2024-04-05 16:00] VITALS: BP 109/53; TEMP 98.1; O2SAT 96
[2024-04-05 20:00] VITALS: BP 115/73; TEMP 98.2; O2SAT 98
[2024-04-06] VITALS (9 sets, daily range): BP systolic 108–129; BP diastolic 62–77; TEMP 97.7–98.4; O2SAT 94–100
[2024-04-06] MEDS ORDERED: LIDOCAINE 1% INJ 50 ML MDV IJ ONE (06:50)
[2024-04-06] MEDS ORDERED: ANESTHESIA TRAY IN PYXIS 1 EA TRAY MC ONE (06:50)
[2024-04-06] MEDS ORDERED: HEPARIN SODIUM, PORCINE 1,000 UNIT/ML VIAL ONE (06:50)
[2024-04-06] MEDS ORDERED: IOHEXOL 50 ML IV ONE (06:51)
[2024-04-06 07:28] LABS: CALCIUM, SERUM 8.1 mg/dL (8.5-10.1); CREATININE 3.2 mg/dL (0.6-1.3); POTASSIUM 4.4 mmol/L (3.5-5.1)
[2024-04-06] MEDS ORDERED: FENTANYL PF 100MCG/2ML AMPUL ONE (07:31)
[2024-04-06] MEDS: VANCOMYCIN POST DIALYSIS 500MG IV PRN (20:06)
[2024-04-07 06:41] LABS: CREATININE 2.4 mg/dL (0.6-1.3); POTASSIUM 4.1 mmol/L (3.5-5.1)
[2024-04-07 20:00] VITALS: BP 109/75; TEMP 98.1; O2SAT 98
[2024-04-08 07:37] LABS: CALCIUM, SERUM 7.7 mg/dL (8.5-10.1); CREATININE 3.1 mg/dL (0.6-1.3); POTASSIUM 4.4 mmol/L (3.5-5.1)
[2024-04-08 08:00] VITALS: BP 107/60; TEMP 97.5; O2SAT 92
[2024-04-08] MEDS: HYDROCORTISONE SOD SUCCINATE 100 MG/2 ML VIAL IV SCH (09:43)
[2024-04-08 16:00] VITALS: BP 95/70; TEMP 98.8; O2SAT 92
[2024-04-08 20:20] VITALS: BP 94/56; TEMP 98.1
[2024-04-09 07:56] LABS: CALCIUM, SERUM 7.6 mg/dL (8.5-10.1); CREATININE 3.3 mg/dL (0.6-1.3); POTASSIUM 4.5 mmol/L (3.5-5.1)
[2024-04-09 08:00] VITALS: BP 100/76; TEMP 98.8; O2SAT 94
[2024-04-09] MEDS: HYDROCORTISONE SOD SUCCINATE 100 MG/2 ML VIAL IV SCH (09:07)
[2024-04-09] MEDS ORDERED: APIX5TAB PO (11:42)
[2024-04-09] MEDS ORDERED: MERO500P IV (11:42)
== END 2024-04-09 14:30 | DRG 853 ==
LOC: ER 08:54 → MED 12:46
PROVIDERS: ADMIT Nurse Practitioner Acute Care; ATTEND Nurse Practitioner Family
PROC: 5A1D70Z Performance of Urinary Filtration, Intermittent, Less than 6 Hours Per Day (ICD-10-PCS; 2024-03-24)
PROC: 06HY33Z Insertion of Infusion Device into Lower Vein, Percutaneous Approach (ICD-10-PCS; 2024-03-24)
PROC: 0FT44ZZ Resection of Gallbladder, Percutaneous Endoscopic Approach (ICD-10-PCS; principal; 2024-03-29)
PROC: 0FB04ZX Excision of Liver, Percutaneous Endoscopic Approach, Diagnostic (ICD-10-PCS; 2024-03-29)
PROC: BF532Z0 Other Imaging of Gallbladder and Bile Ducts using Fluorescing Agent, Intraoperative (ICD-10-PCS; 2024-03-29)
PROC: 30233N1 Transfusion of Nonautologous Red Blood Cells into Peripheral Vein, Percutaneous Approach (ICD-10-PCS; 2024-03-30)
PROC: 0JH63XZ Insertion of Tunneled Vascular Access Device into Chest Subcutaneous Tissue and Fascia, Percutaneous Approach (ICD-10-PCS; 2024-04-06)
PROC: 02HV33Z Insertion of Infusion Device into Superior Vena Cava, Percutaneous Approach (ICD-10-PCS; 2024-04-06)
PROC: B518YZA Fluoroscopy of Superior Vena Cava using Other Contrast, Guidance (ICD-10-PCS; 2024-04-06)
DX: A41.51 Sepsis due to Escherichia coli [E. coli] (principal); E43 Unspecified severe protein-calorie malnutrition; G92.8 Other toxic encephalopathy; N17.0 Acute kidney failure with tubular necrosis; R65.21 Severe sepsis with septic shock; D68.59 Other primary thrombophilia; E87.20 Acidosis, unspecified; E87.0 Hyperosmolality and hypernatremia; Z68.1 Body mass index [BMI] 19.9 or less, adult; N13.6 Pyonephrosis; D68.9 Coagulation defect, unspecified; Z16.12 Extended spectrum beta lactamase (ESBL) resistance; K81.2 Acute cholecystitis with chronic cholecystitis; K82.0 Obstruction of gallbladder; D64.9 Anemia, unspecified; E86.9 Volume depletion, unspecified; E88.09 Other disorders of plasma-protein metabolism, not elsewhere classified; F31.9 Bipolar disorder, unspecified; G40.909 Epilepsy, unspecified, not intractable, without status epilepticus; H40.9 Unspecified glaucoma; I25.10 Atherosclerotic heart disease of native coronary artery without angina pectoris; J44.9 Chronic obstructive pulmonary disease, unspecified; M89.8X9 Other specified disorders of bone, unspecified site; R62.7 Adult failure to thrive; R13.10 Dysphagia, unspecified; Z79.01 Long term (current) use of anticoagulants; Z87.442 Personal history of urinary calculi; Z95.2 Presence of prosthetic heart valve; Z66 Do not resuscitate; N18.9 Chronic kidney disease, unspecified; K66.0 Peritoneal adhesions (postprocedural) (postinfection); I12.9 Hypertensive chronic kidney disease with stage 1 through stage 4 chronic kidney disease, or unspecified chronic kidney disease; R53.1 Weakness; Z74.09 Other reduced mobility; R74.01 Elevation of levels of liver transaminase levels; L89.626 Pressure-induced deep tissue damage of left heel; L89.616 Pressure-induced deep tissue damage of right heel; E80.6 Other disorders of bilirubin metabolism; B96.4 Proteus (mirabilis) (morganii) as the cause of diseases classified elsewhere; F09 Unspecified mental disorder due to known physiological condition; K74.60 Unspecified cirrhosis of liver; D75.839 Thrombocytosis, unspecified; L89.156 Pressure-induced deep tissue damage of sacral region; L89.326 Pressure-induced deep tissue damage of left buttock; L89.316 Pressure-induced deep tissue damage of right buttock; B95.2 Enterococcus as the cause of diseases classified elsewhere; Z86.19 Personal history of other infectious and parasitic diseases; K52.9 Noninfective gastroenteritis and colitis, unspecified; F03.90 Unspecified dementia, unspecified severity, without behavioral disturbance, psychotic disturbance, mood disturbance, and anxiety; Z51.5 Encounter for palliative care
CPT/HCPCS: 36415; 36600; 71045-TC; 71250-TC; 76705-TC; 76770-TC; 78226; 80048-TC; 80053-TC; 80076-TC; 80202-TC; 81001; 82550-TC; 82803-TC; 82962-TC; 83605-TC; 83735-TC; 83970; 84100-TC; 84155; 84165; 85025-TC; 85027-TC; 85652-TC; 85730-TC; 86225; 86235; 86704; 86705; 86706; 86707; 86803; 86850-TC; 87040-TC; 87081-TC; 87086-TC; 87186-TC; 87340; 87522; 87806; 88304-TC; 88307-TC; 88313-TC; 90935-TC; 92526; 92611-TC; 93307-TC; A4216; A4217; A4223; A6403; A9537; C1750; C1769; C1894; G0378; J0690; J0692; J1100; J1644; J1720; J1953; J2185; J2405; J2543; J2704; J3010; J3370; J3475; J3480; J3490; J7030; J7042; J7050; J7060; P9016; P9045; P9047; Q9967; Q9968

== ENCOUNTER 2024-04-13 00:10 | Inpatient (IN) | payer MEDICARE, OTHER ==
[~2024-04-13] VITALS: Ht 160 cm; Wt 72.6 kg
[2024-04-13] VITALS (7 sets, daily range): BP systolic 75–82; BP diastolic 40–55; TEMP 98.1–98.8; O2SAT 99–100
[~2024-04-13 00:10] MED LIST changes: +CALC-261 PO; -CALC1TAB30 PO; -CRAN425C6 PO; +HYDR-4209 PO; -LACT1CAP71 PO; -LEVE250T2 PO; +LEVE500T20 PO; +MERO500P IV; +PANT40TA49 PO; +POLY17PO4 PO; -QUET25TA PO
[2024-04-13 01:27] LABS: BASOPHILS # (AUTO) 0.1 K/uL (0.0-0.2); BASOPHILS % (AUTO) 0.6 % (0.0-2.0); EOSINOPHILS # (AUTO) 0.1 K/uL (0.0-0.7); EOSINOPHILS % (AUTO) 1.2 % (0.0-6.0); HEMATOCRIT 21 % (33-45); HEMOGLOBIN 7.2 g/dL (11.5-14.8); LYMPHOCYTES # (AUTO) 1.1 K/uL (0.8-4.8); LYMPHOCYTES % (AUTO) 9.5 % (20.0-44.0); MEAN CORPUSCULAR HEMOGLOBIN 33 PG (26.0-33.0); MEAN CORPUSCULAR HGB CONC 34 g/dl (31.0-36.0); MEAN CORPUSCULAR VOLUME 94 fL (82-100); MONOCYTES # (AUTO) 1.8 K/uL (0.1-1.30); MONOCYTES % (AUTO) 16.1 % (2.0-12.0); NEUTROPHILS # (AUTO) 8.1 K/uL (1.8-8.9); NEUTROPHILS % (AUTO) 72.6 % (43.0-81.0); PLATELET COUNT (AUTO) 58 K/uL (150-450); RED BLOOD CELL COUNT(AUTO) 2.21 MIL/uL (4.0-5.2); RED CELL DISTRIBUTION WIDTH 16.6 % (11.5-15.0); WHITE BLOOD COUNT (AUTO) 11.2 K/uL (4.3-11.0)
[2024-04-13 02:13] LABS: ANISOCYTOSIS 1+; PLATELET ESTIMATE DECREASED
[2024-04-13 02:16] LABS: BASOPHILS % (MANUAL) 0 % (0.0-2.0); EOSINOPHILS % (MANUAL) 0 % (0-4); LYMPHOCYTES % (MANUAL) 8 % (16-48); MONOCYTES % (MANUAL) 9 % (0-11.0); NEUTROPHILS % (MANUAL) 83 (42-76); TARGET CELLS FEW
[2024-04-13 02:48] LABS: ALANINE AMINOTRANSFERASE 30 U/L (12-78); ALBUMIN 2.5 g/dL (3.4-5.0); ALKALINE PHOSPHATASE 412 U/L (46-116); ASPARTATE AMINOTRANSFERASE 60 U/L (15-37); BILIRUBIN,TOTAL 0.9 mg/dL (0.2-1.0); CARBON DIOXIDE 29 mmol/L (21-32); CHLORIDE 98 mmol/L (98-107); GLUCOSE 123 mg/dL (74-106); POTASSIUM 3.8 mmol/L (3.5-5.1); SODIUM SERUM 134 mmol/L (136-145); TOTAL PROTEIN, SERUM 5.2 g/dL (6.4-8.2); UREA NITROGEN, BLOOD 26 mg/dL (7-18)
[2024-04-13 03:12] LABS: NT-PRO BNP 4008 pg/mL (0-125)
[2024-04-13] MEDS ORDERED: MAG HYDROX/AL HYDROX/SIMETH 30 ML UDC PO PRN (04:00)
[2024-04-13] MEDS ORDERED: ONDANSETRON HCL/PF 4 MG/2 ML VIAL IVP PRN (04:00)
[2024-04-13] MEDS ORDERED: MAGNESIUM HYDROXIDE 30 ML UDC PO PRN (04:00)
[2024-04-13] MEDS ORDERED: ACETAMINOPHEN 325 MG TABLET PO PRN (04:00)
[2024-04-13 04:51] LABS: APPEARANCE,URINE TURBID (CLEAR); BILIRUBIN,URINE NEGATIVE (NEGATIVE); BLOOD, URINE 3+ Ery/uL (NEGATIVE); COLOR,URINE YELLOW (YELLOW); KETONES,URINE NEGATIVE (NEGATIVE); LEUKOCYTE ESTERASE ,URINE 2+ (NEGATIVE); NITRITE, URINE NEGATIVE (NEGATIVE); PROTEIN,URINE 3+ mg/dl (NEGATIVE); UGLUCOSE NEGATIVE (NEGATIVE); UROBILINOGEN,URINE 0.2 EU/dL (0.2)
[2024-04-13 05:07] LABS: WBC,URINE TOO NUMEROUS TO COUN /HPF (0-3)
[2024-04-13 05:12] LABS: SQUAMOUS EPITHELIAL CELL,UR Moderate /HPF (None Seen)
[2024-04-13 05:14] LABS: ADD URINE CULTURE YES; BACTERIA,URINE Many /HPF (None Seen)
[2024-04-13 06:27] LABS: IRON, SERUM 165 ug/dl (50-175); TOTAL IRON BINDING CAPACITY 166 ug/dl (250-450)
[2024-04-13 07:57] LABS: CALCIUM, SERUM 7.5 mg/dL (8.5-10.1); CREATININE 2.2 mg/dL (0.6-1.3); MAGNESIUM 1.8 mg/dL (1.8-2.4); PHOSPHORUS 3.1 mg/dL (2.5-4.9); POTASSIUM 3.8 mmol/L (3.5-5.1)
[2024-04-13 08:09] LABS: BASOPHILS # (AUTO) 0.1 K/uL (0.0-0.2); BASOPHILS % (AUTO) 0.6 % (0.0-2.0); EOSINOPHILS # (AUTO) 0.1 K/uL (0.0-0.7); EOSINOPHILS % (AUTO) 1.2 % (0.0-6.0); LYMPHOCYTES # (AUTO) 1.4 K/uL (0.8-4.8); LYMPHOCYTES % (AUTO) 12.7 % (20.0-44.0); MEAN CORPUSCULAR HEMOGLOBIN 33 PG (26.0-33.0); MEAN CORPUSCULAR HGB CONC 35 g/dl (31.0-36.0); MEAN CORPUSCULAR VOLUME 93 fL (82-100); MONOCYTES # (AUTO) 1.8 K/uL (0.1-1.30); MONOCYTES % (AUTO) 16.9 % (2.0-12.0); NEUTROPHILS # (AUTO) 7.3 K/uL (1.8-8.9); NEUTROPHILS % (AUTO) 68.6 % (43.0-81.0); PLATELET COUNT (AUTO) 52 K/uL (150-450); RED BLOOD CELL COUNT(AUTO) 2.05 MIL/uL (4.0-5.2); RED CELL DISTRIBUTION WIDTH 16.2 % (11.5-15.0); WHITE BLOOD COUNT (AUTO) 10.7 K/uL (4.3-11.0)
[2024-04-13 08:11] LABS: HEMATOCRIT 19 % (33-45); HEMOGLOBIN 6.7 g/dL (11.5-14.8)
[2024-04-13] MEDS ORDERED: PANTOPRAZOLE 40 MG TABLET.DR PO ONE (08:45)
[2024-04-13] MEDS ORDERED: Medication Not On Formulary EA (Cran/Vitc/Mannose/Inulin/Brom (Uti-Stat Liquid) 30 ML) PO SCH (09:00)
[2024-04-13] MEDS ORDERED: Medication Not On Formulary EA (Omega-3/Dha/Epa/Fish Oil (Fish Oil 1,000 mg Softgel) 2,0 PO SCH (09:00)
[2024-04-13] MEDS: LISINOPRIL (10MG) 10 MG TABLET PO SCH (09:00)
[2024-04-13] MEDS ORDERED: LACT1CAP69 PO (09:10)
[2024-04-13] MEDS ORDERED: APIX2.5T PO (09:10)
[2024-04-13] MEDS ORDERED: PETR113O TP (09:10)
[2024-04-13] MEDS ORDERED: DOCU50LI PO (09:10)
[2024-04-13] MEDS ORDERED: BISA10SU11 RC (09:10)
[2024-04-13] MEDS: APIXABAN 2.5 MG TABLET PO SCH (09:30)
[2024-04-13] MEDS: MULTIVIT W/MINERALS 1 TAB TABLET PO SCH (09:59)
[2024-04-13] MEDS: CALCIUM CARB 250MG /VITAMIN D 1 UDTAB PO SCH (09:59)
[2024-04-13] MEDS: OXCARBAZEPINE 150 MG TABLET PO SCH (09:59)
[2024-04-13] MEDS: LEVETIRACETAM (250 MG) 250 MG TABLET PO SCH (10:00)
[2024-04-13] MEDS: POLYETHYLENE GLYCOL 3350 17 GM POWD.PACK PO SCH (10:00)
[2024-04-13] MEDS: POLYVINYL ALCOHOL 15 ML BOTTLE EACHEYE SCH (10:04)
[2024-04-13] MEDS: LACTULOSE 10 G/15 ML UDC (PYXIS) PO SCH (10:05)
[2024-04-13] MEDS: DAKINS QUARTER STRENGTH (0.125%) 480 ML BOTTLE TOP SCH (11:20)
[2024-04-13 13:39] LABS: ABG BASE EXCESS 2.4 mmol/L (-2.0-3.0); ABG OXYGEN SATURATION 97.3 % (94.0-98.0); ABG PCO2 31.5 mmHg (32.0-45.0); ABG PH 7.522 (7.350-7.450); ABG PO2 99.3 mmHg (83.0-108.0); ABG TOTAL HEMOGLOBIN 7.4 G/dL (12.0-16.0); COHb 0.3 % (0.5-1.5); MetHb 0.4 % (0.0-1.5); O2Hb 96.6 % (94.0-97.0); SITE, ABG LEFT RADIAL
[2024-04-13 14:48] LABS: ANISOCYTOSIS 1+; EOSINOPHILS % (MANUAL) 3 % (0-4); LYMPHOCYTES % (MANUAL) 14 % (16-48); MONOCYTES % (MANUAL) 9 % (0-11.0); NEUTROPHILS % (MANUAL) 74 (42-76); PLATELET ESTIMATE DECREASED
[2024-04-13] MEDS: LATANOPROST EYE DROP 0.005% 2.5 ML BOTTLE EACHEYE SCH (21:37)
[2024-04-13] MEDS: DOCUSATE SODIUM 250 MG CAPSULE PO SCH (21:37)
[2024-04-14] VITALS: BP 82/52; TEMP 98.2; O2SAT 97
[2024-04-14] MEDS: EPOETIN ALFA (10,000 UNIT) 10,000 UNIT/ML VIAL SQ SCH (00:52)
[2024-04-14 04:00] VITALS: BP 102/54; TEMP 98.1; O2SAT 97
[2024-04-14 06:17] LABS: BASOPHILS # (AUTO) 0.1 K/uL (0.0-0.2); EOSINOPHILS # (AUTO) 0.2 K/uL (0.0-0.7)
[2024-04-14 06:55] LABS: CREATININE 2.6 mg/dL (0.6-1.3); MAGNESIUM 1.9 mg/dL (1.8-2.4); PHOSPHORUS 3.8 mg/dL (2.5-4.9); POTASSIUM 4.1 mmol/L (3.5-5.1)
[2024-04-14 07:30] VITALS: BP 110/62; TEMP 98.4; O2SAT 96
[2024-04-14 08:00] VITALS: BP 110/62; TEMP 98.4; O2SAT 96
[2024-04-14] MEDS: PANTOPRAZOLE 40 MG TABLET.DR PO SCH (08:01)
[2024-04-14 09:17] LABS: HEMOGLOBIN 8.4 g/dL (11.5-14.8); RED BLOOD CELL COUNT(AUTO) 2.68 MIL/uL (4.0-5.2); WHITE BLOOD COUNT (AUTO) 12.6 K/uL (4.3-11.0)
[2024-04-14 09:22] LABS: BASOPHILS % (AUTO) 0.8 % (0.0-2.0); EOSINOPHILS % (AUTO) 1.7 % (0.0-6.0); HEMATOCRIT 24 % (33-45); LYMPHOCYTES % (AUTO) 12.2 % (20.0-44.0); MEAN CORPUSCULAR HEMOGLOBIN 31 PG (26.0-33.0); MEAN CORPUSCULAR HGB CONC 35 g/dl (31.0-36.0); MEAN CORPUSCULAR VOLUME 90 fL (82-100); MONOCYTES % (AUTO) 15.8 % (2.0-12.0); NEUTROPHILS % (AUTO) 69.5 % (43.0-81.0); PLATELET COUNT (AUTO) 60 K/uL (150-450); RED CELL DISTRIBUTION WIDTH 17.3 % (11.5-15.0)
[2024-04-14 09:23] LABS: LYMPHOCYTES # (AUTO) 1.5 K/uL (0.8-4.8); NEUTROPHILS # (AUTO) 8.7 K/uL (1.8-8.9)
[2024-04-14 14:06] LABS: EOSINOPHILS % (MANUAL) 1 % (0-4); LYMPHOCYTES % (MANUAL) 23 % (16-48); MONOCYTES % (MANUAL) 7 % (0-11.0); NEUTROPHILS % (MANUAL) 69 (42-76)
[2024-04-14 14:09] LABS: ANISOCYTOSIS 1+; OVALOCYTES 1+; PLATELET ESTIMATE DECREASED; STOMATOCYTES 1+
[2024-04-14 16:00] VITALS: BP 91/68; TEMP 98.6; O2SAT 97
[2024-04-14 20:00] VITALS: BP 112/55; TEMP 98.2; O2SAT 98
[2024-04-14] MEDS ORDERED: ALBUMIN 25% 100 ML IV ONE (20:30)
[2024-04-14] MEDS: ALBUMIN 25% 25 GM in PREMIX 1 EA IV PRN (20:55)
[2024-04-14] MEDS ORDERED: MEROPENEM 500 MG VIAL IV ONE (22:27)
[2024-04-14] MEDS: MEROPENEM 500 MG in IV NS 0.9% 50 ML IV ONE (23:40)
[2024-04-15] VITALS: BP 114/67; TEMP 98.2; O2SAT 96
[2024-04-15 04:59] VITALS: BP 115/65; TEMP 98.1; O2SAT 98
[2024-04-15 05:02] VITALS: BP 115/65; TEMP 98.1; O2SAT 98
[2024-04-15 08:06] LABS: BASOPHILS # (AUTO) 0.1 K/uL (0.0-0.2); BASOPHILS % (AUTO) 0.5 % (0.0-2.0); EOSINOPHILS # (AUTO) 0.2 K/uL (0.0-0.7); EOSINOPHILS % (AUTO) 1.7 % (0.0-6.0); HEMATOCRIT 24 % (33-45); HEMOGLOBIN 8.2 g/dL (11.5-14.8); LYMPHOCYTES # (AUTO) 1.3 K/uL (0.8-4.8); LYMPHOCYTES % (AUTO) 12.5 % (20.0-44.0); MEAN CORPUSCULAR HEMOGLOBIN 32 PG (26.0-33.0); MEAN CORPUSCULAR HGB CONC 35 g/dl (31.0-36.0); MEAN CORPUSCULAR VOLUME 92 fL (82-100); MONOCYTES # (AUTO) 1.5 K/uL (0.1-1.30); MONOCYTES % (AUTO) 14.2 % (2.0-12.0); NEUTROPHILS # (AUTO) 7.3 K/uL (1.8-8.9); NEUTROPHILS % (AUTO) 71.1 % (43.0-81.0); PLATELET COUNT (AUTO) 53 K/uL (150-450); RED BLOOD CELL COUNT(AUTO) 2.57 MIL/uL (4.0-5.2); RED CELL DISTRIBUTION WIDTH 16.9 % (11.5-15.0); WHITE BLOOD COUNT (AUTO) 10.3 K/uL (4.3-11.0)
[2024-04-15 08:30] LABS: CALCIUM, SERUM 8.5 mg/dL (8.5-10.1); CREATININE 2.2 mg/dL (0.6-1.3); MAGNESIUM 1.9 mg/dL (1.8-2.4); PHOSPHORUS 3.3 mg/dL (2.5-4.9); POTASSIUM 3.8 mmol/L (3.5-5.1)
[2024-04-15 11:00] VITALS: BP 93/69; TEMP 97.9; O2SAT 96
[2024-04-15 11:24] LABS: ANISOCYTOSIS 1+; BAND % (MANUAL) 1 % (0.0-5.0); EOSINOPHILS % (MANUAL) 2 % (0-4); LYMPHOCYTES % (MANUAL) 16 % (16-48); MONOCYTES % (MANUAL) 8 % (0-11.0); NEUTROPHILS % (MANUAL) 73 (42-76); PLATELET ESTIMATE DECREASED
[2024-04-15 16:00] VITALS: BP 106/56; TEMP 98.4; O2SAT 98
[2024-04-15] MEDS: MEROPENEM 500 MG in IV NS 0.9% 50 ML IV SCH (20:27)
[2024-04-15] MEDS ORDERED: LATANOPROST EYE DROP 0.005% 2.5 ML BOTTLE ONE (23:34)
[2024-04-16 08:00] VITALS: BP 107/64; TEMP 99.3; O2SAT 98
[2024-04-16 16:00] VITALS: BP 110/64; TEMP 99; O2SAT 94
[2024-04-16 20:00] VITALS: BP 110/60; TEMP 98.1; O2SAT 96
[2024-04-17 07:30] VITALS: BP 111/68; TEMP 98.6; O2SAT 94
[2024-04-17 16:00] VITALS: BP 121/64; TEMP 98.6; O2SAT 97
[2024-04-17 16:03] LABS: OCCULT BLOOD STOOL NEGATIVE (NEGATIVE)
[2024-04-17 20:00] VITALS: BP 126/64; TEMP 98.3; O2SAT 93
[2024-04-18 07:30] VITALS: BP 124/72; TEMP 97.9; O2SAT 99
[2024-04-18 16:00] VITALS: BP 121/67; TEMP 97.9; O2SAT 97
[2024-04-18 16:19] LABS: BASOPHILS # (AUTO) 0.1 K/uL (0.0-0.2); BASOPHILS % (AUTO) 0.5 % (0.0-2.0); EOSINOPHILS # (AUTO) 0.2 K/uL (0.0-0.7); EOSINOPHILS % (AUTO) 1.9 % (0.0-6.0); HEMATOCRIT 25 % (33-45); HEMOGLOBIN 8.4 g/dL (11.5-14.8); LYMPHOCYTES # (AUTO) 1.2 K/uL (0.8-4.8); LYMPHOCYTES % (AUTO) 9.9 % (20.0-44.0); MEAN CORPUSCULAR HEMOGLOBIN 31 PG (26.0-33.0); MEAN CORPUSCULAR HGB CONC 34 g/dl (31.0-36.0); MEAN CORPUSCULAR VOLUME 93 fL (82-100); MONOCYTES # (AUTO) 1.7 K/uL (0.1-1.30); MONOCYTES % (AUTO) 14.8 % (2.0-12.0); NEUTROPHILS # (AUTO) 8.5 K/uL (1.8-8.9); NEUTROPHILS % (AUTO) 72.9 % (43.0-81.0); PLATELET COUNT (AUTO) 72 K/uL (150-450); RED BLOOD CELL COUNT(AUTO) 2.68 MIL/uL (4.0-5.2); RED CELL DISTRIBUTION WIDTH 17.6 % (11.5-15.0); WHITE BLOOD COUNT (AUTO) 11.6 K/uL (4.3-11.0)
[2024-04-18 16:31] LABS: CALCIUM, SERUM 8.1 mg/dL (8.5-10.1); CREATININE 2.7 mg/dL (0.6-1.3); MAGNESIUM 1.9 mg/dL (1.8-2.4); PHOSPHORUS 3.4 mg/dL (2.5-4.9); POTASSIUM 4.7 mmol/L (3.5-5.1)
[2024-04-18 20:47] LABS: EOSINOPHILS % (MANUAL) 3 % (0-4); LYMPHOCYTES % (MANUAL) 10 % (16-48); MONOCYTES % (MANUAL) 10 % (0-11.0); NEUTROPHILS % (MANUAL) 77 (42-76)
[2024-04-18 20:51] LABS: PLATELET ESTIMATE DECRE
[2024-04-18 20:52] LABS: ANISOCYTOSIS 1+
== END 2024-04-18 19:20 | DRG 811 ==
LOC: ER 00:16 → TELE 08:02 → MED 04-15 10:38
PROVIDERS: ADMIT Internal Medicine; ATTEND Nurse Practitioner Family
PROC: 5A1D70Z Performance of Urinary Filtration, Intermittent, Less than 6 Hours Per Day (ICD-10-PCS; principal; 2024-04-13)
PROC: 30233N1 Transfusion of Nonautologous Red Blood Cells into Peripheral Vein, Percutaneous Approach (ICD-10-PCS; 2024-04-13)
DX: D64.9 Anemia, unspecified (principal); E43 Unspecified severe protein-calorie malnutrition; N18.6 End stage renal disease; G92.8 Other toxic encephalopathy; I21.A1 Myocardial infarction type 2; I12.0 Hypertensive chronic kidney disease with stage 5 chronic kidney disease or end stage renal disease; D68.59 Other primary thrombophilia; E87.1 Hypo-osmolality and hyponatremia; F03.93 Unspecified dementia, unspecified severity, with mood disturbance; G40.909 Epilepsy, unspecified, not intractable, without status epilepticus; I25.10 Atherosclerotic heart disease of native coronary artery without angina pectoris; D69.6 Thrombocytopenia, unspecified; E88.09 Other disorders of plasma-protein metabolism, not elsewhere classified; Z95.2 Presence of prosthetic heart valve; Z99.2 Dependence on renal dialysis; M89.8X9 Other specified disorders of bone, unspecified site; H40.9 Unspecified glaucoma; J44.9 Chronic obstructive pulmonary disease, unspecified; Z79.01 Long term (current) use of anticoagulants; L89.626 Pressure-induced deep tissue damage of left heel; L89.616 Pressure-induced deep tissue damage of right heel; L89.896 Pressure-induced deep tissue damage of other site; R74.01 Elevation of levels of liver transaminase levels; R62.7 Adult failure to thrive; Z68.28 Body mass index [BMI] 28.0-28.9, adult; Z90.49 Acquired absence of other specified parts of digestive tract; Z86.19 Personal history of other infectious and parasitic diseases; E83.9 Disorder of mineral metabolism, unspecified; L89.159 Pressure ulcer of sacral region, unspecified stage; F31.9 Bipolar disorder, unspecified; Z87.440 Personal history of urinary (tract) infections
CPT/HCPCS: 36415; 36600; 71045-TC; 80048-TC; 80053-TC; 81001; 82272-TC; 82803-TC; 82962-TC; 83540-TC; 83735-TC; 83880; 84100-TC; 84484-TC; 85025-TC; 86850-TC; 87040-TC; 87081-TC; 90935-TC; A4216; A4223; A6253; A6403; G0378; J0885; J2185; J7030; J7050; P9016; P9047

== ENCOUNTER 2024-05-10 17:19 | Inpatient (IN) | payer MEDICARE, OTHER ==
[~2024-05-10] VITALS: Ht 160 cm; Wt 69.0 kg
[~2024-05-10 17:19] MED LIST changes: +APIX2.5T PO; -APIX5TAB PO; +BISA10SU11 RC; -DOCU250C30 PO; +DOCU50LI PO; +LACT1CAP69 PO; -MERO500P IV; +PETR113O TP
[2024-05-10] MEDS: IV NS 0.9% 500 ML BAG IV ONE (17:56)
[2024-05-10] MEDS: CEFEPIME 1 GM in IV D5W 50 ML IV ONE (17:57)
[2024-05-10 17:58] LABS: BASOPHILS # (AUTO) 0.1 K/uL (0.0-0.2); BASOPHILS % (AUTO) 0.7 % (0.0-2.0); EOSINOPHILS % (AUTO) 5.6 % (0.0-6.0); HEMATOCRIT 29 % (33-45); HEMOGLOBIN 9.4 g/dL (11.5-14.8); LYMPHOCYTES # (AUTO) 1.8 K/uL (0.8-4.8); LYMPHOCYTES % (AUTO) 9.7 % (20.0-44.0); MEAN CORPUSCULAR HEMOGLOBIN 31 PG (26.0-33.0); MEAN CORPUSCULAR HGB CONC 33 g/dl (31.0-36.0); MEAN CORPUSCULAR VOLUME 95 fL (82-100); MONOCYTES # (AUTO) 2.3 K/uL (0.1-1.30); MONOCYTES % (AUTO) 12.7 % (2.0-12.0); NEUTROPHILS # (AUTO) 12.9 K/uL (1.8-8.9); NEUTROPHILS % (AUTO) 71.3 % (43.0-81.0); PLATELET COUNT (AUTO) 287 K/uL (150-450); RED CELL DISTRIBUTION WIDTH 19.6 % (11.5-15.0); WHITE BLOOD COUNT (AUTO) 18.2 K/uL (4.3-11.0)
[2024-05-10 18:13] LABS: CALCIUM, SERUM 7.9 mg/dL (8.5-10.1); CARBON DIOXIDE 31 mmol/L (21-32); CHLORIDE 98 mmol/L (98-107); CREATININE 2.7 mg/dL (0.6-1.3); GLUCOSE 101 mg/dL (74-106); POTASSIUM 4.3 mmol/L (3.5-5.1); SODIUM SERUM 135 mmol/L (136-145); UREA NITROGEN, BLOOD 20 mg/dL (7-18)
[2024-05-10 18:18] LABS: INR 1.17 (0.91-1.10); LACTIC ACID 1.4 mmol/L (0.4-2.0); PARTIAL THROMBOPLASTIN TIME 33.6 SEC (24.3-34.3); PROTHROMBIN TIME 12.3 SECS (9.2-11.1)
[2024-05-10 18:19] LABS: ALANINE AMINOTRANSFERASE 22 U/L (12-78); ALBUMIN 2.4 g/dL (3.4-5.0); ALKALINE PHOSPHATASE 289 U/L (46-116); ASPARTATE AMINOTRANSFERASE 40 U/L (15-37); BILIRUBIN,DIRECT 0.5 mg/dL (0.0-0.2); BILIRUBIN,TOTAL 0.9 mg/dL (0.2-1.0)
[2024-05-10 18:26] LABS: APPEARANCE,URINE TURBID (CLEAR); BILIRUBIN,URINE 2+ (NEGATIVE); BLOOD, URINE 3+ Ery/uL (NEGATIVE); COLOR,URINE DARK YELLOW (YELLOW); KETONES,URINE 1+ mg/dL (NEGATIVE); LEUKOCYTE ESTERASE ,URINE 2+ (NEGATIVE); NITRITE, URINE POSITIVE (NEGATIVE); PROTEIN,URINE 3+ mg/dl (NEGATIVE); UGLUCOSE NEGATIVE (NEGATIVE); UROBILINOGEN,URINE 0.2 EU/dL (0.2)
[2024-05-10 18:39] LABS: ADD URINE CULTURE YES; BACTERIA,URINE Moderate /HPF (None Seen); SQUAMOUS EPITHELIAL CELL,UR Few /HPF (None Seen); WBC,URINE TOO NUMEROUS TO COUN /HPF (0-3); YEAST,URINE Hyphal filaments /HPF (None Seen)
[2024-05-10 18:40] LABS: RBC,URINE 21-50 /HPF (0-2)
[2024-05-10] MEDS ORDERED: MAGNESIUM HYDROXIDE 30 ML UDC PO PRN (19:00)
[2024-05-10] MEDS ORDERED: HYDROCODONE/APAP 5/325MG TABLET PO PRN (19:00)
[2024-05-10] MEDS ORDERED: ONDANSETRON HCL/PF 4 MG/2 ML VIAL IVP PRN (19:00)
[2024-05-10] MEDS ORDERED: MAG HYDROX/AL HYDROX/SIMETH 30 ML UDC PO PRN (19:00)
[2024-05-10] MEDS ORDERED: LACT10SO58 PO (19:06)
[2024-05-10] MEDS ORDERED: DOCU250C14 PO (19:06)
[2024-05-10] MEDS ORDERED: CRAN425C6 PO (19:06)
[2024-05-10] MEDS ORDERED: QUET25TA PO (19:06)
[2024-05-10] MEDS ORDERED: ACET325T53 PO (19:06)
[2024-05-10] MEDS ORDERED: APIX5TAB PO (19:06)
[2024-05-10] MEDS ORDERED: IPRATROPIUM NEB FS 0.5 MG/2.5 ML AMPUL.NEB NEB PRN (19:30)
[2024-05-10] MEDS ORDERED: ALBUTEROL FS 2.5 MG/3 ML VIAL.NEB NEB PRN (19:30)
[2024-05-10] MEDS: VANCOMYCIN 1 GM /D5W 250 ML PB IV ONE (22:20)
[2024-05-10] MEDS: VANCOMYCIN 1 GM in IV D5W 250ml IV ONE (22:26)
[2024-05-11] VITALS: BP 97/65; TEMP 97.7; O2SAT 98
[2024-05-11] MEDS ORDERED: MEROPENEM 500 MG VIAL IV ONE (00:53)
[2024-05-11] MEDS: MEROPENEM 500 MG in IV NS 0.9% 50 ML IV SCH (01:07)
[2024-05-11 04:00] VITALS: BP 119/69; TEMP 98.1; O2SAT 99
[2024-05-11 06:53] LABS: BASOPHILS # (AUTO) 0.2 K/uL (0.0-0.2); BASOPHILS % (AUTO) 0.9 % (0.0-2.0); EOSINOPHILS # (AUTO) 1.3 K/uL (0.0-0.7); EOSINOPHILS % (AUTO) 7.5 % (0.0-6.0); HEMATOCRIT 26 % (33-45); HEMOGLOBIN 8.8 g/dL (11.5-14.8); LYMPHOCYTES # (AUTO) 1.8 K/uL (0.8-4.8); LYMPHOCYTES % (AUTO) 10.6 % (20.0-44.0); MEAN CORPUSCULAR HEMOGLOBIN 33 PG (26.0-33.0); MEAN CORPUSCULAR HGB CONC 34 g/dl (31.0-36.0); MEAN CORPUSCULAR VOLUME 97 fL (82-100); MONOCYTES # (AUTO) 1.9 K/uL (0.1-1.30); MONOCYTES % (AUTO) 11.1 % (2.0-12.0); NEUTROPHILS # (AUTO) 11.9 K/uL (1.8-8.9); NEUTROPHILS % (AUTO) 69.9 % (43.0-81.0); PLATELET COUNT (AUTO) 254 K/uL (150-450); RED BLOOD CELL COUNT(AUTO) 2.65 MIL/uL (4.0-5.2); RED CELL DISTRIBUTION WIDTH 19.1 % (11.5-15.0); WHITE BLOOD COUNT (AUTO) 17.1 K/uL (4.3-11.0)
[2024-05-11 07:23] LABS: CALCIUM, SERUM 8.4 mg/dL (8.5-10.1); CREATININE 2.7 mg/dL (0.6-1.3); MAGNESIUM 1.9 mg/dL (1.8-2.4); PHOSPHORUS 3.7 mg/dL (2.5-4.9); POTASSIUM 3.9 mmol/L (3.5-5.1)
[2024-05-11 08:00] VITALS: BP 116/73; TEMP 99.3; O2SAT 99
[2024-05-11] MEDS: PANTOPRAZOLE 40 MG VIAL IV SCH (09:33)
[2024-05-11] MEDS: DAKINS QUARTER STRENGTH (0.125%) 480 ML BOTTLE TOP SCH (10:33)
[2024-05-11 12:00] VITALS: BP 121/77; TEMP 99.9; O2SAT 97
[2024-05-11] MEDS ORDERED: DOCUSATE SODIUM 250 MG CAPSULE PO PRN (14:00)
[2024-05-11] MEDS ORDERED: BISACODYL SUPP (10 MG) 10 MG/SUPP.RECT SUPP.RECT RC PRN (14:00)
[2024-05-11] MEDS: PANTOPRAZOLE 40 MG TABLET.DR PO SCH (16:57)
[2024-05-11] MEDS: OXCARBAZEPINE 150 MG TABLET PO SCH (16:57)
[2024-05-11 20:00] VITALS: BP 97/60; TEMP 98.4; O2SAT 100
[2024-05-11] MEDS: LEVETIRACETAM (250 MG) 250 MG TABLET PO SCH (20:14)
[2024-05-11] MEDS: LATANOPROST EYE DROP 0.005% 2.5 ML BOTTLE EACHEYE SCH (21:29)
[2024-05-12] VITALS: BP 104/71; TEMP 98.8; O2SAT 97
[2024-05-12 04:00] VITALS: BP 98/64; TEMP 98.8; O2SAT 96
[2024-05-12 07:51] LABS: ALBUMIN 2.2 g/dL (3.4-5.0); CALCIUM, SERUM 7.8 mg/dL (8.5-10.1); CREATININE 2.4 mg/dL (0.6-1.3); POTASSIUM 4.5 mmol/L (3.5-5.1); TOTAL PROTEIN, SERUM 5.4 g/dL (6.4-8.2)
[2024-05-12 08:00] VITALS: BP 117/85; TEMP 98.2; O2SAT 99
[2024-05-12] MEDS: MULTIVIT W/MINERALS 1 TAB TABLET PO SCH (08:23)
[2024-05-12] MEDS: LISINOPRIL (10MG) 10 MG TABLET PO SCH (08:25)
[2024-05-12] MEDS: LACTULOSE 10 G/15 ML UDC (PYXIS) PO SCH (08:25)
[2024-05-12] MEDS: CALCIUM CARB 250MG /VITAMIN D 1 UDTAB PO SCH (08:30)
[2024-05-12] MEDS ORDERED: Medication Not On Formulary EA (Omega-3/Dha/Epa/Fish Oil (Fish Oil 1,000 mg Softgel) 2,0 PO SCH (09:00)
[2024-05-12] MEDS ORDERED: Medication Not On Formulary EA (Cranberry Extract (Cranberry) 450 MG) PO SCH (09:00)
[2024-05-12 10:06] LABS: BASOPHILS # (AUTO) 0.2 K/uL (0.0-0.2); EOSINOPHILS % (AUTO) 6.1 % (0.0-6.0); HEMATOCRIT 26 % (33-45); HEMOGLOBIN 8.6 g/dL (11.5-14.8); LYMPHOCYTES # (AUTO) 1.3 K/uL (0.8-4.8); LYMPHOCYTES % (AUTO) 8.1 % (20.0-44.0); MEAN CORPUSCULAR HEMOGLOBIN 32 PG (26.0-33.0); MEAN CORPUSCULAR HGB CONC 33 g/dl (31.0-36.0); MEAN CORPUSCULAR VOLUME 98 fL (82-100); MONOCYTES % (AUTO) 12.2 % (2.0-12.0); NEUTROPHILS # (AUTO) 12.1 K/uL (1.8-8.9); NEUTROPHILS % (AUTO) 72.6 % (43.0-81.0); PLATELET COUNT (AUTO) 234 K/uL (150-450); RED BLOOD CELL COUNT(AUTO) 2.69 MIL/uL (4.0-5.2); RED CELL DISTRIBUTION WIDTH 19.8 % (11.5-15.0); WHITE BLOOD COUNT (AUTO) 16.7 K/uL (4.3-11.0)
[2024-05-12] MEDS: VANCOMYCIN POST DIALYSIS 500MG IV PRN (10:20)
[2024-05-12 12:00] VITALS: BP 112/76; TEMP 98.1; O2SAT 96
[2024-05-12 16:00] VITALS: BP 121/86; TEMP 97.7; O2SAT 100
[2024-05-12 20:00] VITALS: BP 115/82; TEMP 97.5; O2SAT 95
[2024-05-12] MEDS: ACETAMINOPHEN 325 MG TABLET PO PRN (20:15)
[2024-05-13 07:24] LABS: BASOPHILS # (AUTO) 0.1 K/uL (0.0-0.2); BASOPHILS % (AUTO) 0.8 % (0.0-2.0); EOSINOPHILS # (AUTO) 1.9 K/uL (0.0-0.7); EOSINOPHILS % (AUTO) 13.2 % (0.0-6.0); HEMATOCRIT 30 % (33-45); HEMOGLOBIN 9.7 g/dL (11.5-14.8); LYMPHOCYTES # (AUTO) 1.5 K/uL (0.8-4.8); LYMPHOCYTES % (AUTO) 10.9 % (20.0-44.0); MEAN CORPUSCULAR HEMOGLOBIN 32 PG (26.0-33.0); MEAN CORPUSCULAR HGB CONC 33 g/dl (31.0-36.0); MEAN CORPUSCULAR VOLUME 97 fL (82-100); MONOCYTES # (AUTO) 1.6 K/uL (0.1-1.30); MONOCYTES % (AUTO) 11.2 % (2.0-12.0); NEUTROPHILS % (AUTO) 63.9 % (43.0-81.0); PLATELET COUNT (AUTO) 262 K/uL (150-450); RED BLOOD CELL COUNT(AUTO) 3.06 MIL/uL (4.0-5.2); RED CELL DISTRIBUTION WIDTH 21.1 % (11.5-15.0); WHITE BLOOD COUNT (AUTO) 14.1 K/uL (4.3-11.0)
[2024-05-13 07:46] LABS: CALCIUM, SERUM 8.4 mg/dL (8.5-10.1); CREATININE 2.6 mg/dL (0.6-1.3); POTASSIUM 4.6 mmol/L (3.5-5.1)
[2024-05-13 08:00] VITALS: BP 107/52; TEMP 98.2; O2SAT 94
[2024-05-13] MEDS: FLUCONAZOLE (100 MG) 100 MG TABLET PO SCH (08:53)
[2024-05-13 16:00] VITALS: BP 115/69; TEMP 97.9; O2SAT 98
[2024-05-13] MEDS: VANCOMYCIN 1 GM in IV D5W 250 ML IV PRN (18:32)
[2024-05-13 20:34] VITALS: BP 98/44; TEMP 97.5; O2SAT 94
[2024-05-13 22:00] VITALS: BP 110/60; O2SAT 94
[2024-05-14 08:26] VITALS: BP 92/63; TEMP 97.4; O2SAT 95
[2024-05-14 12:22] LABS: CALCIUM, SERUM 8.3 mg/dL (8.5-10.1); CREATININE 3.1 mg/dL (0.6-1.3); POTASSIUM 5.5 mmol/L (3.5-5.1)
[2024-05-14 12:46] LABS: BASOPHILS # (AUTO) 0.2 K/uL (0.0-0.2); BASOPHILS % (AUTO) 1.3 % (0.0-2.0); EOSINOPHILS # (AUTO) 0.9 K/uL (0.0-0.7); EOSINOPHILS % (AUTO) 6.5 % (0.0-6.0); HEMATOCRIT 31 % (33-45); HEMOGLOBIN 10.4 g/dL (11.5-14.8); LYMPHOCYTES # (AUTO) 0.9 K/uL (0.8-4.8); LYMPHOCYTES % (AUTO) 6.1 % (20.0-44.0); MEAN CORPUSCULAR HEMOGLOBIN 33 PG (26.0-33.0); MEAN CORPUSCULAR HGB CONC 33 g/dl (31.0-36.0); MEAN CORPUSCULAR VOLUME 98 fL (82-100); MONOCYTES # (AUTO) 1.6 K/uL (0.1-1.30); NEUTROPHILS # (AUTO) 10.7 K/uL (1.8-8.9); NEUTROPHILS % (AUTO) 75.1 % (43.0-81.0); PLATELET COUNT (AUTO) 220 K/uL (150-450); RED BLOOD CELL COUNT(AUTO) 3.17 MIL/uL (4.0-5.2); RED CELL DISTRIBUTION WIDTH 20.9 % (11.5-15.0); WHITE BLOOD COUNT (AUTO) 14.3 K/uL (4.3-11.0)
[2024-05-14] MEDS: ARGININE/GLUTAMINE/CALCIUM BMB 1 EACH POWD.PACK PO SCH (13:49)
[2024-05-14] MEDS: ALBUMIN 25% 25 GM in PREMIX 1 EA IV PRN (14:59)
[2024-05-14] MEDS: PROSOURCE / PROSTAT (PYXIS) 30 ML UDC PO SCH (16:35)
[2024-05-14] MEDS: PANTOPRAZOLE 40 MG/PACK PACK PO SCH (16:35)
[2024-05-14 16:56] VITALS: BP 97/57; TEMP 97.5; O2SAT 95
[2024-05-14] MEDS: VANCOMYCIN POST DIALYSIS 500MG IV PRN (17:12)
[2024-05-14 20:00] VITALS: BP 91/71; TEMP 98.1; O2SAT 94
[2024-05-15 07:24] LABS: CALCIUM, SERUM 7.9 mg/dL (8.5-10.1); CREATININE 2.4 mg/dL (0.6-1.3); POTASSIUM 4.3 mmol/L (3.5-5.1)
[2024-05-15 07:47] LABS: BASOPHILS # (AUTO) 0.1 K/uL (0.0-0.2); BASOPHILS % (AUTO) 0.9 % (0.0-2.0); EOSINOPHILS # (AUTO) 1.5 K/uL (0.0-0.7); EOSINOPHILS % (AUTO) 10.3 % (0.0-6.0); HEMATOCRIT 24 % (33-45); LYMPHOCYTES # (AUTO) 1.2 K/uL (0.8-4.8); LYMPHOCYTES % (AUTO) 8.3 % (20.0-44.0); MEAN CORPUSCULAR HEMOGLOBIN 33 PG (26.0-33.0); MEAN CORPUSCULAR HGB CONC 34 g/dl (31.0-36.0); MEAN CORPUSCULAR VOLUME 99 fL (82-100); MONOCYTES # (AUTO) 1.5 K/uL (0.1-1.30); MONOCYTES % (AUTO) 10.7 % (2.0-12.0); NEUTROPHILS # (AUTO) 9.9 K/uL (1.8-8.9); NEUTROPHILS % (AUTO) 69.8 % (43.0-81.0); PLATELET COUNT (AUTO) 162 K/uL (150-450); WHITE BLOOD COUNT (AUTO) 14.2 K/uL (4.3-11.0)
[2024-05-15 08:00] VITALS: BP 99/67; TEMP 98.6; O2SAT 92
[2024-05-15 16:00] VITALS: BP 98/57; TEMP 98.6; O2SAT 100
[2024-05-15] MEDS: LACTULOSE 10 G/15 ML UDC (PYXIS) PO SCH (16:49)
[2024-05-15] MEDS: MIRTAZAPINE 15 MG TABLET PO SCH (21:25)
[2024-05-16 08:00] VITALS: BP 115/66; TEMP 97.9; O2SAT 94
[2024-05-16 10:40] LABS: BASOPHILS # (AUTO) 0.1 K/uL (0.0-0.2); BASOPHILS % (AUTO) 0.5 % (0.0-2.0); EOSINOPHILS # (AUTO) 1.6 K/uL (0.0-0.7); EOSINOPHILS % (AUTO) 7.5 % (0.0-6.0); HEMATOCRIT 28 % (33-45); HEMOGLOBIN 9.2 g/dL (11.5-14.8); LYMPHOCYTES # (AUTO) 1.3 K/uL (0.8-4.8); LYMPHOCYTES % (AUTO) 6.2 % (20.0-44.0); MEAN CORPUSCULAR HEMOGLOBIN 32 PG (26.0-33.0); MEAN CORPUSCULAR HGB CONC 33 g/dl (31.0-36.0); MEAN CORPUSCULAR VOLUME 97 fL (82-100); MONOCYTES # (AUTO) 2.5 K/uL (0.1-1.30); MONOCYTES % (AUTO) 11.9 % (2.0-12.0); NEUTROPHILS # (AUTO) 15.7 K/uL (1.8-8.9); NEUTROPHILS % (AUTO) 73.9 % (43.0-81.0); PLATELET COUNT (AUTO) 189 K/uL (150-450); RED BLOOD CELL COUNT(AUTO) 2.87 MIL/uL (4.0-5.2); RED CELL DISTRIBUTION WIDTH 19.5 % (11.5-15.0); WHITE BLOOD COUNT (AUTO) 21.2 K/uL (4.3-11.0)
[2024-05-16 10:50] LABS: CALCIUM, SERUM 7.8 mg/dL (8.5-10.1); CREATININE 2.9 mg/dL (0.6-1.3); POTASSIUM 4.7 mmol/L (3.5-5.1)
[2024-05-16 16:00] VITALS: BP 130/90; TEMP 97.5; O2SAT 95
[2024-05-16 20:10] VITALS: BP 74/40; O2SAT 70
[2024-05-16 20:50] VITALS: BP 93/54; TEMP 97.9; O2SAT 96
[2024-05-16] MEDS: MIDODRINE HCL (5MG) 5 MG TABLET PO SCH (21:19)
[2024-05-16 22:49] VITALS: BP 74/42; TEMP 97.9; O2SAT 95
[2024-05-16 23:11] VITALS: BP 101/65; TEMP 97.9; O2SAT 97
[2024-05-17] VITALS: BP 101/65; TEMP 97.8; O2SAT 97
[2024-05-17 04:00] VITALS: BP 111/70; TEMP 97.7; O2SAT 96
[2024-05-17 06:29] VITALS: BP 70/40; TEMP 97.7; O2SAT 70
[2024-05-17 07:43] LABS: BASOPHILS # (AUTO) 0.1 K/uL (0.0-0.2); BASOPHILS % (AUTO) 0.7 % (0.0-2.0); EOSINOPHILS # (AUTO) 2.3 K/uL (0.0-0.7); EOSINOPHILS % (AUTO) 12.7 % (0.0-6.0); HEMATOCRIT 25 % (33-45); HEMOGLOBIN 8.2 g/dL (11.5-14.8); LYMPHOCYTES # (AUTO) 1.2 K/uL (0.8-4.8); LYMPHOCYTES % (AUTO) 6.6 % (20.0-44.0); MEAN CORPUSCULAR HEMOGLOBIN 32 PG (26.0-33.0); MEAN CORPUSCULAR HGB CONC 33 g/dl (31.0-36.0); MEAN CORPUSCULAR VOLUME 97 fL (82-100); MONOCYTES # (AUTO) 2.1 K/uL (0.1-1.30); MONOCYTES % (AUTO) 11.7 % (2.0-12.0); NEUTROPHILS # (AUTO) 12.5 K/uL (1.8-8.9); NEUTROPHILS % (AUTO) 68.3 % (43.0-81.0); PLATELET COUNT (AUTO) 146 K/uL (150-450); RED BLOOD CELL COUNT(AUTO) 2.53 MIL/uL (4.0-5.2); RED CELL DISTRIBUTION WIDTH 19.5 % (11.5-15.0); WHITE BLOOD COUNT (AUTO) 18.2 K/uL (4.3-11.0)
[2024-05-17 08:00] VITALS: BP 122/79; TEMP 98.1; O2SAT 100
[2024-05-17 08:09] LABS: CALCIUM, SERUM 8.4 mg/dL (8.5-10.1); CREATININE 2.2 mg/dL (0.6-1.3); POTASSIUM 3.7 mmol/L (3.5-5.1)
[2024-05-17] MEDS: NEPRO VAN 237 ML CAN PO PRN (08:43)
[2024-05-17] MEDS: POLYVINYL ALCOHOL 15 ML BOTTLE EACHEYE PRN (08:43)
[2024-05-17 13:13] VITALS: BP 96/65; TEMP 98.6
[2024-05-17 13:30] LABS: PROTEIN, BODY FLUID 0.2 G/DL
[2024-05-17 14:45] LABS: TOTAL VOLUME,BODY FLUID 5500 mL; WBC, BODY FLUID 25 /cu. mm. (0-200)
[2024-05-17 14:54] LABS: APPEARANCE,SPUN,BODY FLUID CLEAR (CLEAR)
[2024-05-17 20:00] VITALS: BP 90/57; TEMP 98.8; O2SAT 100
[2024-05-18 07:14] LABS: BASOPHILS # (AUTO) 0.2 K/uL (0.0-0.2); BASOPHILS % (AUTO) 1.2 % (0.0-2.0); EOSINOPHILS # (AUTO) 2.1 K/uL (0.0-0.7); EOSINOPHILS % (AUTO) 13.2 % (0.0-6.0); HEMATOCRIT 28 % (33-45); HEMOGLOBIN 9.2 g/dL (11.5-14.8); LYMPHOCYTES # (AUTO) 1.1 K/uL (0.8-4.8); LYMPHOCYTES % (AUTO) 6.7 % (20.0-44.0); MEAN CORPUSCULAR HEMOGLOBIN 33 PG (26.0-33.0); MEAN CORPUSCULAR HGB CONC 33 g/dl (31.0-36.0); MEAN CORPUSCULAR VOLUME 100 fL (82-100); MONOCYTES # (AUTO) 1.9 K/uL (0.1-1.30); MONOCYTES % (AUTO) 11.9 % (2.0-12.0); NEUTROPHILS # (AUTO) 10.8 K/uL (1.8-8.9); PLATELET COUNT (AUTO) 158 K/uL (150-450); RED BLOOD CELL COUNT(AUTO) 2.78 MIL/uL (4.0-5.2); RED CELL DISTRIBUTION WIDTH 19.2 % (11.5-15.0); WHITE BLOOD COUNT (AUTO) 16.1 K/uL (4.3-11.0)
[2024-05-18 07:23] LABS: CALCIUM, SERUM 8.4 mg/dL (8.5-10.1); CREATININE 2.7 mg/dL (0.6-1.3); POTASSIUM 3.6 mmol/L (3.5-5.1)
[2024-05-18 08:00] VITALS: BP 128/61; TEMP 98.5; O2SAT 99
[2024-05-18 16:00] VITALS: BP 82/54; TEMP 98.3; O2SAT 97
[2024-05-18 17:45] VITALS: BP 91/58
[2024-05-18 18:20] VITALS: BP 102/65
[2024-05-18 20:00] VITALS: BP 102/70; TEMP 98.4; O2SAT 98
[2024-05-19 07:18] LABS: BASOPHILS # (AUTO) 0.1 K/uL (0.0-0.2); BASOPHILS % (AUTO) 0.9 % (0.0-2.0); EOSINOPHILS # (AUTO) 1.7 K/uL (0.0-0.7); EOSINOPHILS % (AUTO) 12.6 % (0.0-6.0); HEMATOCRIT 25 % (33-45); HEMOGLOBIN 8.2 g/dL (11.5-14.8); LYMPHOCYTES # (AUTO) 1.1 K/uL (0.8-4.8); MEAN CORPUSCULAR HEMOGLOBIN 32 PG (26.0-33.0); MEAN CORPUSCULAR HGB CONC 33 g/dl (31.0-36.0); MEAN CORPUSCULAR VOLUME 97 fL (82-100); MONOCYTES # (AUTO) 1.9 K/uL (0.1-1.30); MONOCYTES % (AUTO) 14.6 % (2.0-12.0); NEUTROPHILS # (AUTO) 8.5 K/uL (1.8-8.9); NEUTROPHILS % (AUTO) 63.9 % (43.0-81.0); PLATELET COUNT (AUTO) 155 K/uL (150-450); RED BLOOD CELL COUNT(AUTO) 2.52 MIL/uL (4.0-5.2); RED CELL DISTRIBUTION WIDTH 18.9 % (11.5-15.0); WHITE BLOOD COUNT (AUTO) 13.3 K/uL (4.3-11.0)
[2024-05-19 08:00] VITALS: BP 111/63; TEMP 98.4; O2SAT 97
[2024-05-19 08:02] LABS: CALCIUM, SERUM 8.6 mg/dL (8.5-10.1); CREATININE 2.5 mg/dL (0.6-1.3); POTASSIUM 3.5 mmol/L (3.5-5.1)
[2024-05-19] MEDS: SPIRONOLACTONE 25 MG TABLET PO SCH (10:00)
[2024-05-19 13:27] LABS: INR 1.2 (0.91-1.10); PARTIAL THROMBOPLASTIN TIME 36.7 SEC (24.3-34.3); PROTHROMBIN TIME 12.6 SECS (9.2-11.1)
[2024-05-19 16:00] VITALS: BP 103/55; TEMP 98.6; O2SAT 94
[2024-05-19 20:00] VITALS: BP 96/63; TEMP 98.5; O2SAT 100
[2024-05-20 07:24] LABS: CREATININE 2.9 mg/dL (0.6-1.3); POTASSIUM 3.4 mmol/L (3.5-5.1)
[2024-05-20 08:00] VITALS: BP 118/66; TEMP 97.5; O2SAT 95
[2024-05-20 11:01] LABS: BASOPHILS # (AUTO) 0.1 K/uL (0.0-0.2); EOSINOPHILS # (AUTO) 2.5 K/uL (0.0-0.7); EOSINOPHILS % (AUTO) 18.9 % (0.0-6.0); HEMATOCRIT 24 % (33-45); HEMOGLOBIN 7.7 g/dL (11.5-14.8); LYMPHOCYTES # (AUTO) 1.5 K/uL (0.8-4.8); LYMPHOCYTES % (AUTO) 11.7 % (20.0-44.0); MEAN CORPUSCULAR HEMOGLOBIN 32 PG (26.0-33.0); MEAN CORPUSCULAR HGB CONC 33 g/dl (31.0-36.0); MEAN CORPUSCULAR VOLUME 97 fL (82-100); NEUTROPHILS % (AUTO) 53.4 % (43.0-81.0); PLATELET COUNT (AUTO) 166 K/uL (150-450); RED BLOOD CELL COUNT(AUTO) 2.42 MIL/uL (4.0-5.2); RED CELL DISTRIBUTION WIDTH 18.8 % (11.5-15.0)
[2024-05-20 16:00] VITALS: BP 88/50; TEMP 98.6; O2SAT 96
[2024-05-20 20:00] VITALS: BP_SYST 141; BP_SYST 94; BP_DIAS 46; BP_DIAS 81; TEMP 97.7; O2SAT 99
[2024-05-21 07:31] LABS: CALCIUM, SERUM 8.5 mg/dL (8.5-10.1); CREATININE 2.4 mg/dL (0.6-1.3); POTASSIUM 3.8 mmol/L (3.5-5.1)
[2024-05-21 07:44] LABS: BASOPHILS # (AUTO) 0.1 K/uL (0.0-0.2); BASOPHILS % (AUTO) 0.8 % (0.0-2.0); EOSINOPHILS # (AUTO) 2.5 K/uL (0.0-0.7); EOSINOPHILS % (AUTO) 19.2 % (0.0-6.0); HEMATOCRIT 23 % (33-45); HEMOGLOBIN 7.8 g/dL (11.5-14.8); LYMPHOCYTES % (AUTO) 7.5 % (20.0-44.0); MEAN CORPUSCULAR HEMOGLOBIN 33 PG (26.0-33.0); MEAN CORPUSCULAR HGB CONC 33 g/dl (31.0-36.0); MEAN CORPUSCULAR VOLUME 98 fL (82-100); MONOCYTES # (AUTO) 1.5 K/uL (0.1-1.30); MONOCYTES % (AUTO) 11.3 % (2.0-12.0); NEUTROPHILS % (AUTO) 61.2 % (43.0-81.0); PLATELET COUNT (AUTO) 133 K/uL (150-450); RED BLOOD CELL COUNT(AUTO) 2.39 MIL/uL (4.0-5.2); RED CELL DISTRIBUTION WIDTH 18.3 % (11.5-15.0); WHITE BLOOD COUNT (AUTO) 13.1 K/uL (4.3-11.0)
[2024-05-21 08:00] VITALS: BP 118/77; TEMP 98.8; O2SAT 92
[2024-05-21 16:00] VITALS: BP 107/70; TEMP 98.8; O2SAT 94
[2024-05-21 16:06] LABS: BAND % (MANUAL) 0 % (0.0-5.0); EOSINOPHILS % (MANUAL) 17 % (0-4); LYMPHOCYTES % (MANUAL) 10 % (16-48); MONOCYTES % (MANUAL) 4 % (0-11.0); NEUTROPHILS % (MANUAL) 69 (42-76)
[2024-05-21 16:07] LABS: ANISOCYTOSIS 2+; BASOPHILS % (MANUAL) 0 % (0.0-2.0); PLATELET ESTIMATE DECREASED
[2024-05-21 20:00] VITALS: BP 109/50; TEMP 97.7; O2SAT 98
[2024-05-22 06:30] LABS: CALCIUM, SERUM 8.8 mg/dL (8.5-10.1); CREATININE 2.7 mg/dL (0.6-1.3); MAGNESIUM 2.2 mg/dL (1.8-2.4); PHOSPHORUS 3.8 mg/dL (2.5-4.9); POTASSIUM 4.5 mmol/L (3.5-5.1)
[2024-05-22 06:38] LABS: BASOPHILS # (AUTO) 0.1 K/uL (0.0-0.2); BASOPHILS % (AUTO) 0.5 % (0.0-2.0); EOSINOPHILS # (AUTO) 2.5 K/uL (0.0-0.7); EOSINOPHILS % (AUTO) 16.9 % (0.0-6.0); HEMATOCRIT 25 % (33-45); HEMOGLOBIN 8.4 g/dL (11.5-14.8); LYMPHOCYTES # (AUTO) 1.1 K/uL (0.8-4.8); LYMPHOCYTES % (AUTO) 7.9 % (20.0-44.0); MEAN CORPUSCULAR HEMOGLOBIN 33 PG (26.0-33.0); MEAN CORPUSCULAR HGB CONC 33 g/dl (31.0-36.0); MEAN CORPUSCULAR VOLUME 97 fL (82-100); MONOCYTES # (AUTO) 1.5 K/uL (0.1-1.30); MONOCYTES % (AUTO) 10.5 % (2.0-12.0); NEUTROPHILS # (AUTO) 9.4 K/uL (1.8-8.9); NEUTROPHILS % (AUTO) 64.2 % (43.0-81.0); PLATELET COUNT (AUTO) 161 K/uL (150-450); RED BLOOD CELL COUNT(AUTO) 2.58 MIL/uL (4.0-5.2); RED CELL DISTRIBUTION WIDTH 18.1 % (11.5-15.0); WHITE BLOOD COUNT (AUTO) 14.6 K/uL (4.3-11.0)
[2024-05-22 07:00] VITALS: BP 127/67; TEMP 97.3; O2SAT 97
[2024-05-22 08:00] VITALS: BP 127/67; TEMP 97.3; O2SAT 97
[2024-05-22] MEDS: Z GUARD REMEDY 4 OZ OINT TP PRN (08:27)
[2024-05-22] MEDS: THERAHONEY GEL 1.5 OZ TUBE TP SCH (12:50)
[2024-05-22 13:00] VITALS: BP 109/72
[2024-05-22 16:00] VITALS: BP 115/57; TEMP 98.1; O2SAT 90
[2024-05-22 16:30] VITALS: BP 115/57; TEMP 98.1; O2SAT 90; O2SAT 95
[2024-05-22 20:00] VITALS: BP 119/78; TEMP 97.6; O2SAT 96
[2024-05-22] MEDS: QUETIAPINE FUMARATE 25 MG TABLET PO SCH (21:13)
[2024-05-23 06:47] LABS: BASOPHILS # (AUTO) 0.1 K/uL (0.0-0.2); BASOPHILS % (AUTO) 0.9 % (0.0-2.0); EOSINOPHILS # (AUTO) 2.8 K/uL (0.0-0.7); HEMATOCRIT 27 % (33-45); LYMPHOCYTES # (AUTO) 1.4 K/uL (0.8-4.8); LYMPHOCYTES % (AUTO) 10.9 % (20.0-44.0); MEAN CORPUSCULAR HEMOGLOBIN 32 PG (26.0-33.0); MEAN CORPUSCULAR HGB CONC 33 g/dl (31.0-36.0); MEAN CORPUSCULAR VOLUME 98 fL (82-100); MONOCYTES # (AUTO) 1.2 K/uL (0.1-1.30); MONOCYTES % (AUTO) 9.6 % (2.0-12.0); NEUTROPHILS # (AUTO) 7.2 K/uL (1.8-8.9); NEUTROPHILS % (AUTO) 56.6 % (43.0-81.0); PLATELET COUNT (AUTO) 184 K/uL (150-450); RED BLOOD CELL COUNT(AUTO) 2.77 MIL/uL (4.0-5.2); RED CELL DISTRIBUTION WIDTH 18.1 % (11.5-15.0); WHITE BLOOD COUNT (AUTO) 12.7 K/uL (4.3-11.0)
[2024-05-23 07:00] VITALS: BP 117/91; TEMP 98.1; O2SAT 96
[2024-05-23 07:10] LABS: CREATININE 2.4 mg/dL (0.6-1.3); MAGNESIUM 2.3 mg/dL (1.8-2.4); PHOSPHORUS 3.4 mg/dL (2.5-4.9); POTASSIUM 3.7 mmol/L (3.5-5.1)
[2024-05-23] MEDS ORDERED: MIDO5TAB4 PO (08:40)
[2024-05-23] MEDS ORDERED: PANT40SU2 PO (08:40)
[2024-05-23] MEDS ORDERED: SPIR25TA6 PO (08:40)
[2024-05-23 16:00] VITALS: BP 92/60; TEMP 97.5; O2SAT 98
[2024-05-23 20:00] VITALS: BP 119/63; TEMP 98.4; O2SAT 100
[2024-05-24] MEDS ORDERED: ALBUMIN 25% 25 GM in PREMIX 1 EA IV PRN (07:30)
[2024-05-24 08:00] VITALS: BP 131/76; TEMP 98.1; O2SAT 92
[2024-05-24 11:16] LABS: BASOPHILS # (AUTO) 0.2 K/uL (0.0-0.2); BASOPHILS % (AUTO) 1.5 % (0.0-2.0); EOSINOPHILS # (AUTO) 2.2 K/uL (0.0-0.7); EOSINOPHILS % (AUTO) 15.2 % (0.0-6.0); HEMATOCRIT 27 % (33-45); HEMOGLOBIN 8.7 g/dL (11.5-14.8); LYMPHOCYTES # (AUTO) 1.1 K/uL (0.8-4.8); LYMPHOCYTES % (AUTO) 7.3 % (20.0-44.0); MEAN CORPUSCULAR HEMOGLOBIN 31 PG (26.0-33.0); MEAN CORPUSCULAR HGB CONC 33 g/dl (31.0-36.0); MEAN CORPUSCULAR VOLUME 95 fL (82-100); MONOCYTES # (AUTO) 1.4 K/uL (0.1-1.30); MONOCYTES % (AUTO) 9.7 % (2.0-12.0); NEUTROPHILS # (AUTO) 9.7 K/uL (1.8-8.9); NEUTROPHILS % (AUTO) 66.3 % (43.0-81.0); PLATELET COUNT (AUTO) 203 K/uL (150-450); RED BLOOD CELL COUNT(AUTO) 2.81 MIL/uL (4.0-5.2); RED CELL DISTRIBUTION WIDTH 17.7 % (11.5-15.0); WHITE BLOOD COUNT (AUTO) 14.6 K/uL (4.3-11.0)
[2024-05-24 11:25] LABS: CALCIUM, SERUM 9.1 mg/dL (8.5-10.1); CREATININE 2.9 mg/dL (0.6-1.3); POTASSIUM 4.1 mmol/L (3.5-5.1); TOTAL PROTEIN, SERUM 5.9 g/dL (6.4-8.2)
[2024-05-24 16:00] VITALS: BP 130/72; TEMP 98.1; O2SAT 96
[2024-05-24 20:10] VITALS: BP 121/92; TEMP 98.2; O2SAT 98
[2024-05-24] MEDS ORDERED: HYDROMORPHONE 1 MG/1 ML DISP.SYRIN IV ONE (22:00)
[2024-05-25 06:39] LABS: BASOPHILS # (AUTO) 0.2 K/uL (0.0-0.2); BASOPHILS % (AUTO) 1.1 % (0.0-2.0); EOSINOPHILS # (AUTO) 2.6 K/uL (0.0-0.7); EOSINOPHILS % (AUTO) 18.6 % (0.0-6.0); HEMATOCRIT 26 % (33-45); HEMOGLOBIN 8.8 g/dL (11.5-14.8); LYMPHOCYTES # (AUTO) 1.6 K/uL (0.8-4.8); LYMPHOCYTES % (AUTO) 11.2 % (20.0-44.0); MEAN CORPUSCULAR HEMOGLOBIN 32 PG (26.0-33.0); MEAN CORPUSCULAR HGB CONC 34 g/dl (31.0-36.0); MEAN CORPUSCULAR VOLUME 96 fL (82-100); MONOCYTES # (AUTO) 1.3 K/uL (0.1-1.30); MONOCYTES % (AUTO) 9.6 % (2.0-12.0); NEUTROPHILS # (AUTO) 8.3 K/uL (1.8-8.9); NEUTROPHILS % (AUTO) 59.5 % (43.0-81.0); PLATELET COUNT (AUTO) 185 K/uL (150-450); RED BLOOD CELL COUNT(AUTO) 2.72 MIL/uL (4.0-5.2); RED CELL DISTRIBUTION WIDTH 17.7 % (11.5-15.0)
[2024-05-25 06:44] LABS: ALBUMIN 3.1 g/dL (3.4-5.0); CREATININE 2.2 mg/dL (0.6-1.3); POTASSIUM 4.1 mmol/L (3.5-5.1)
[2024-05-25 08:00] VITALS: BP 121/75; TEMP 98.1; O2SAT 95
[2024-05-25 16:00] VITALS: BP 123/82; TEMP 97.5; O2SAT 93
[2024-05-25 16:14] VITALS: BP 123/82
== END 2024-05-25 17:30 | DRG 853 ==
LOC: ER 17:34 → TELE 20:52 → MED 05-12 12:48
PROVIDERS: ADMIT Nurse Practitioner Acute Care
PROC: 5A1D70Z Performance of Urinary Filtration, Intermittent, Less than 6 Hours Per Day (ICD-10-PCS; 2024-05-11)
PROC: 05HC33Z Insertion of Infusion Device into Left Basilic Vein, Percutaneous Approach (ICD-10-PCS; 2024-05-12)
PROC: B54NZZA Ultrasonography of Left Upper Extremity Veins, Guidance (ICD-10-PCS; 2024-05-12)
PROC: 0W9G3ZZ Drainage of Peritoneal Cavity, Percutaneous Approach (ICD-10-PCS; principal; 2024-05-15)
PROC: 0KBN0ZZ Excision of Right Hip Muscle, Open Approach (ICD-10-PCS; 2024-05-17)
PROC: 0KBP0ZZ Excision of Left Hip Muscle, Open Approach (ICD-10-PCS; 2024-05-17)
PROC: 0W9G3ZZ Drainage of Peritoneal Cavity, Percutaneous Approach (ICD-10-PCS; 2024-05-21)
PROC: 0KBP0ZZ Excision of Left Hip Muscle, Open Approach (ICD-10-PCS; 2024-05-22)
PROC: 0KBN0ZZ Excision of Right Hip Muscle, Open Approach (ICD-10-PCS; 2024-05-22)
PROC: 0JBR0ZZ Excision of Left Foot Subcutaneous Tissue and Fascia, Open Approach (ICD-10-PCS; 2024-05-24)
DX: A41.9 Sepsis, unspecified organism (principal); G92.8 Other toxic encephalopathy; L89.623 Pressure ulcer of left heel, stage 3; L89.154 Pressure ulcer of sacral region, stage 4; K65.2 Spontaneous bacterial peritonitis; N18.6 End stage renal disease; R65.21 Severe sepsis with septic shock; N39.0 Urinary tract infection, site not specified; I12.0 Hypertensive chronic kidney disease with stage 5 chronic kidney disease or end stage renal disease; D68.59 Other primary thrombophilia; E87.1 Hypo-osmolality and hyponatremia; E44.0 Moderate protein-calorie malnutrition; R18.8 Other ascites; B37.49 Other urogenital candidiasis; D63.8 Anemia in other chronic diseases classified elsewhere; E87.5 Hyperkalemia; E88.09 Other disorders of plasma-protein metabolism, not elsewhere classified; G40.909 Epilepsy, unspecified, not intractable, without status epilepticus; H40.9 Unspecified glaucoma; Z95.2 Presence of prosthetic heart valve; Z99.2 Dependence on renal dialysis; Z87.442 Personal history of urinary calculi; Z87.440 Personal history of urinary (tract) infections; Z79.01 Long term (current) use of anticoagulants; Z66 Do not resuscitate; F03.90 Unspecified dementia, unspecified severity, without behavioral disturbance, psychotic disturbance, mood disturbance, and anxiety; R62.7 Adult failure to thrive; Z68.26 Body mass index [BMI] 26.0-26.9, adult; S70.321A Blister (nonthermal), right thigh, initial encounter; X58.XXXA Exposure to other specified factors, initial encounter; Y93.9 Activity, unspecified; Y92.129 Unspecified place in nursing home as the place of occurrence of the external cause; Y99.9 Unspecified external cause status; N20.0 Calculus of kidney; K74.60 Unspecified cirrhosis of liver; Z90.49 Acquired absence of other specified parts of digestive tract; Z86.19 Personal history of other infectious and parasitic diseases; I71.40 Abdominal aortic aneurysm, without rupture, unspecified; J44.9 Chronic obstructive pulmonary disease, unspecified; L89.616 Pressure-induced deep tissue damage of right heel; M24.562 Contracture, left knee; M24.561 Contracture, right knee; I25.10 Atherosclerotic heart disease of native coronary artery without angina pectoris; F31.9 Bipolar disorder, unspecified; Z74.09 Other reduced mobility
CPT/HCPCS: 36410; 36415; 49083; 71045-TC; 76705-TC; 80048-TC; 80053-TC; 80076-TC; 80202-TC; 81001; 82140-TC; 82962-TC; 83605-TC; 83735-TC; 84100-TC; 84484-TC; 85025-TC; 85610-TC; 85730-TC; 87040-TC; 87081-TC; 87086-TC; 88108-TC; 88305-TC; 88341; 88342; 89051-TC; 90935-TC; 92526; 92611-TC; 94799-TC; A4216; A4223; A6253; A6403; G0378; J0692; J2185; J2470; J3370; J7030; J7040; J7050; J7060; P9047

== ENCOUNTER 2024-05-29 19:19 | Inpatient (IN) | payer MEDICARE, OTHER ==
[~2024-05-29] VITALS: Ht 160 cm; Wt 68.0 kg
[~2024-05-29 19:19] MED LIST changes: +ACET325T53 PO; -APIX2.5T PO; +APIX5TAB PO; -CRAN3875 PO; +CRAN425C6 PO; +DOCU250C14 PO; -DOCU50LI PO; -HYDR-4209 PO; +LACT10SO58 PO; -LACT20SO4 PO; +MIDO5TAB4 PO; +PANT40SU2 PO; -PETR113O TP; -POLY17PO4 PO; +QUET25TA PO; +SPIR25TA6 PO
[2024-05-29] MEDS ORDERED: PIPERACI/TAZO 3.375GM/D5W 50ML PB IV ONE (19:46)
[2024-05-29] MEDS ORDERED: VANCOMYCIN 1 GM /D5W 250 ML PB IV ONE (19:46)
[2024-05-29] MEDS ORDERED: MIDO5TAB4 PO (20:06)
[2024-05-29] MEDS ORDERED: POVI1MED TP (20:06)
[2024-05-29] MEDS ORDERED: AMIN30LI2 PO (20:06)
[2024-05-29] MEDS ORDERED: CALC-263 PO (20:06)
[2024-05-29] MEDS ORDERED: ARGI1POW13 PO (20:06)
[2024-05-29] MEDS ORDERED: ZINC454O5 TP (20:06)
[2024-05-29] MEDS ORDERED: SPIR25TA PO (20:06)
[2024-05-29] MEDS ORDERED: NUT.237L67 PO (20:06)
[2024-05-29] MEDS ORDERED: IPRA3AMP23 NEB (20:06)
[2024-05-29] MEDS ORDERED: COLL30OI TP (20:06)
[2024-05-29 20:14] LABS: BASOPHILS # (AUTO) 0.1 K/uL (0.0-0.2); BASOPHILS % (AUTO) 0.5 % (0.0-2.0); EOSINOPHILS # (AUTO) 1.6 K/uL (0.0-0.7); EOSINOPHILS % (AUTO) 8.3 % (0.0-6.0); HEMATOCRIT 21 % (33-45); HEMOGLOBIN 7.1 g/dL (11.5-14.8); LYMPHOCYTES # (AUTO) 1.1 K/uL (0.8-4.8); MEAN CORPUSCULAR HEMOGLOBIN 32 PG (26.0-33.0); MEAN CORPUSCULAR HGB CONC 34 g/dl (31.0-36.0); MEAN CORPUSCULAR VOLUME 94 fL (82-100); MONOCYTES # (AUTO) 2.4 K/uL (0.1-1.30); NEUTROPHILS # (AUTO) 13.6 K/uL (1.8-8.9); NEUTROPHILS % (AUTO) 72.2 % (43.0-81.0); PLATELET COUNT (AUTO) 262 K/uL (150-450); RED BLOOD CELL COUNT(AUTO) 2.25 MIL/uL (4.0-5.2); RED CELL DISTRIBUTION WIDTH 17.9 % (11.5-15.0); WHITE BLOOD COUNT (AUTO) 18.9 K/uL (4.3-11.0)
[2024-05-29] MEDS: PIPERACILLIN /TAZOBACTAM 3.375 G in IV D5W 50 ML IV ONE (20:14)
[2024-05-29] MEDS: VANCOMYCIN 1 GM in IV D5W 250 ML IV ONE (20:15)
[2024-05-29 20:17] LABS: APPEARANCE,URINE SLIGHTLY CLOUDY (CLEAR); BILIRUBIN,URINE NEGATIVE (NEGATIVE); BLOOD, URINE 2+ Ery/uL (NEGATIVE); COLOR,URINE YELLOW (YELLOW); KETONES,URINE TRACE mg/dL (NEGATIVE); LEUKOCYTE ESTERASE ,URINE 3+ (NEGATIVE); NITRITE, URINE NEGATIVE (NEGATIVE); PH,URINE 6.5 (5.0-8.0); PROTEIN,URINE 1+ mg/dl (NEGATIVE); UGLUCOSE NEGATIVE (NEGATIVE); UROBILINOGEN,URINE 0.2 EU/dL (0.2)
[2024-05-29 20:35] LABS: CALCIUM, SERUM 8.3 mg/dL (8.5-10.1); CARBON DIOXIDE 26 mmol/L (21-32); CHLORIDE 101 mmol/L (98-107); CREATININE 4.2 mg/dL (0.6-1.3); GLUCOSE 112 mg/dL (74-106); POTASSIUM 5.1 mmol/L (3.5-5.1); SODIUM SERUM 133 mmol/L (136-145)
[2024-05-29 20:36] LABS: INR 1.25 (0.91-1.10); PARTIAL THROMBOPLASTIN TIME 40.1 SEC (24.3-34.3); PROTHROMBIN TIME 13.1 SECS (9.2-11.1)
[2024-05-29 20:41] LABS: ALANINE AMINOTRANSFERASE 62 U/L (12-78); ALBUMIN 2.4 g/dL (3.4-5.0); ALKALINE PHOSPHATASE 533 U/L (46-116); ASPARTATE AMINOTRANSFERASE 77 U/L (15-37); BILIRUBIN,DIRECT 0.5 mg/dL (0.0-0.2); BILIRUBIN,TOTAL 0.8 mg/dL (0.2-1.0); TOTAL PROTEIN, SERUM 5.4 g/dL (6.4-8.2)
[2024-05-29 20:43] LABS: UREA NITROGEN, BLOOD 133 mg/dL (7-18)
[2024-05-29 20:50] LABS: LACTIC ACID 1.4 mmol/L (0.4-2.0)
[2024-05-29 20:53] LABS: WBC,URINE 81-100 /HPF (0-3)
[2024-05-29 20:54] LABS: ADD URINE CULTURE YES; BACTERIA,URINE Many /HPF (None Seen); SQUAMOUS EPITHELIAL CELL,UR Few /HPF (None Seen); YEAST,URINE Many /HPF (None Seen)
[2024-05-29] MEDS ORDERED: ONDANSETRON HCL/PF 4 MG/2 ML VIAL IVP PRN (22:00)
[2024-05-29] MEDS: APIXABAN 5 MG TABLET PO SCH (22:00)
[2024-05-29] MEDS ORDERED: HEPARIN SODIUM, PORCINE 5000 UNITS/1 ML VIAL SQ SCH (22:00)
[2024-05-29] MEDS ORDERED: MAG HYDROX/AL HYDROX/SIMETH 30 ML UDC PO PRN (22:00)
[2024-05-29] MEDS: IV NS 0.9% 1,000 ML IV PRN (23:33)
[2024-05-30] VITALS: BP 102/62; TEMP 98.6; O2SAT 100
[2024-05-30] MEDS ORDERED: MEROPENEM 1 G VIAL IV ONE (00:58)
[2024-05-30] MEDS ORDERED: LATANOPROST EYE DROP 0.005% 2.5 ML BOTTLE ONE (00:58)
[2024-05-30] MEDS: LATANOPROST EYE DROP 0.005% 2.5 ML BOTTLE EACHEYE SCH (01:20)
[2024-05-30] MEDS: LACTULOSE 10 G/15 ML UDC (PYXIS) PO SCH (01:21)
[2024-05-30] MEDS: LEVETIRACETAM (250 MG) 250 MG TABLET PO SCH (01:21)
[2024-05-30] MEDS: MEROPENEM 1 G in IV NS 0.9% 100 ML IV ONE (01:22)
[2024-05-30 04:00] VITALS: BP 97/67; TEMP 99; O2SAT 99
[2024-05-30 07:35] LABS: BASOPHILS # (AUTO) 0.2 K/uL (0.0-0.2); BASOPHILS % (AUTO) 1.3 % (0.0-2.0); EOSINOPHILS # (AUTO) 1.2 K/uL (0.0-0.7); EOSINOPHILS % (AUTO) 7.6 % (0.0-6.0); HEMATOCRIT 22 % (33-45); HEMOGLOBIN 7.3 g/dL (11.5-14.8); LYMPHOCYTES % (AUTO) 6.4 % (20.0-44.0); MEAN CORPUSCULAR HEMOGLOBIN 32 PG (26.0-33.0); MEAN CORPUSCULAR HGB CONC 33 g/dl (31.0-36.0); MEAN CORPUSCULAR VOLUME 98 fL (82-100); MONOCYTES # (AUTO) 1.8 K/uL (0.1-1.30); MONOCYTES % (AUTO) 11.3 % (2.0-12.0); NEUTROPHILS # (AUTO) 11.5 K/uL (1.8-8.9); NEUTROPHILS % (AUTO) 73.4 % (43.0-81.0); PLATELET COUNT (AUTO) 260 K/uL (150-450); RED BLOOD CELL COUNT(AUTO) 2.26 MIL/uL (4.0-5.2); RED CELL DISTRIBUTION WIDTH 17.5 % (11.5-15.0); WHITE BLOOD COUNT (AUTO) 15.6 K/uL (4.3-11.0)
[2024-05-30 07:45] LABS: CALCIUM, SERUM 8.2 mg/dL (8.5-10.1); CREATININE 4.3 mg/dL (0.6-1.3); MAGNESIUM 2.6 mg/dL (1.8-2.4); PHOSPHORUS 4.9 mg/dL (2.5-4.9); POTASSIUM 5.1 mmol/L (3.5-5.1)
[2024-05-30 08:00] VITALS: BP 104/60; TEMP 99.1; O2SAT 100
[2024-05-30] MEDS: NEPRO VAN 237 ML CAN PO SCH (09:00)
[2024-05-30] MEDS: CALCIUM CARB 250MG /VITAMIN D 1 UDTAB PO SCH (09:47)
[2024-05-30] MEDS: MULTIVIT W/MINERALS 1 TAB TABLET PO SCH (09:48)
[2024-05-30] MEDS: OXCARBAZEPINE 150 MG TABLET PO SCH (09:48)
[2024-05-30] MEDS: THERAHONEY GEL 1.5 OZ TUBE TP SCH ×2 (09:48→12:38)
[2024-05-30] MEDS: FLUCONAZOLE IN NS 100 MG in PREMIX 1 EA IV SCH (09:48)
[2024-05-30] MEDS: ZINC OXIDE 56.7 GM TUBE TP SCH (09:48)
[2024-05-30] MEDS: PANTOPRAZOLE 40 MG TABLET.DR PO SCH (09:48)
[2024-05-30 12:00] VITALS: BP 114/96; TEMP 97.9; O2SAT 100
[2024-05-30] MEDS: EPOETIN ALFA (10,000 UNIT) 10,000 UNIT/ML VIAL SQ SCH (14:38)
[2024-05-30 16:00] VITALS: BP 101/61; TEMP 98.6; O2SAT 98
[2024-05-30 20:00] VITALS: BP 102/56; TEMP 98.8; O2SAT 100
[2024-05-30] MEDS: MEROPENEM 1 G in IV NS 0.9% 100 ML IV SCH (22:13)
[2024-05-31] VITALS: BP 93/59; TEMP 98.1; O2SAT 100
[2024-05-31 04:00] VITALS: BP 110/56; TEMP 98.4; O2SAT 100
[2024-05-31 07:46] LABS: CALCIUM, SERUM 8.2 mg/dL (8.5-10.1); CREATININE 2.8 mg/dL (0.6-1.3); POTASSIUM 4.4 mmol/L (3.5-5.1)
[2024-05-31 07:48] LABS: BASOPHILS # (AUTO) 0.2 K/uL (0.0-0.2); BASOPHILS % (AUTO) 1.5 % (0.0-2.0); EOSINOPHILS # (AUTO) 1.3 K/uL (0.0-0.7); EOSINOPHILS % (AUTO) 8.6 % (0.0-6.0); HEMATOCRIT 22 % (33-45); HEMOGLOBIN 7.3 g/dL (11.5-14.8); LYMPHOCYTES # (AUTO) 1.2 K/uL (0.8-4.8); LYMPHOCYTES % (AUTO) 7.7 % (20.0-44.0); MEAN CORPUSCULAR HEMOGLOBIN 33 PG (26.0-33.0); MEAN CORPUSCULAR HGB CONC 33 g/dl (31.0-36.0); MEAN CORPUSCULAR VOLUME 100 fL (82-100); MONOCYTES # (AUTO) 1.7 K/uL (0.1-1.30); MONOCYTES % (AUTO) 10.9 % (2.0-12.0); NEUTROPHILS % (AUTO) 71.3 % (43.0-81.0); PLATELET COUNT (AUTO) 216 K/uL (150-450); RED BLOOD CELL COUNT(AUTO) 2.21 MIL/uL (4.0-5.2); RED CELL DISTRIBUTION WIDTH 17.6 % (11.5-15.0); WHITE BLOOD COUNT (AUTO) 15.5 K/uL (4.3-11.0)
[2024-05-31 08:00] VITALS: BP 108/61; TEMP 98.6; O2SAT 97
[2024-05-31] MEDS ORDERED: THERAHONEY GEL 1.5 OZ TUBE TP SCH (10:30)
[2024-05-31] MEDS: DAKINS QUARTER STRENGTH (0.125%) 480 ML BOTTLE TOP SCH (15:02)
[2024-05-31 16:00] VITALS: BP 102/76; TEMP 98.1; O2SAT 97
[2024-05-31] MEDS: ALBUMIN 25% 25 GM in PREMIX 1 EA IV PRN (18:38)
[2024-06-01] VITALS: BP 95/58; TEMP 98.1; O2SAT 90
[2024-06-01 05:12] LABS: HEPATITIS B SURFACE AB Non Reactive (.)
[2024-06-01 08:00] VITALS: BP 113/58; TEMP 98.1; O2SAT 97
[2024-06-01 10:17] LABS: CALCIUM, SERUM 8.7 mg/dL (8.5-10.1); CREATININE 2.3 mg/dL (0.6-1.3)
[2024-06-01 15:45] LABS: BASOPHILS # (AUTO) 0.1 K/uL (0.0-0.2); BASOPHILS % (AUTO) 0.6 % (0.0-2.0); EOSINOPHILS # (AUTO) 0.5 K/uL (0.0-0.7); EOSINOPHILS % (AUTO) 2.7 % (0.0-6.0); HEMATOCRIT 22 % (33-45); HEMOGLOBIN 7.3 g/dL (11.5-14.8); LYMPHOCYTES # (AUTO) 0.7 K/uL (0.8-4.8); LYMPHOCYTES % (AUTO) 4.1 % (20.0-44.0); MEAN CORPUSCULAR HEMOGLOBIN 32 PG (26.0-33.0); MEAN CORPUSCULAR HGB CONC 33 g/dl (31.0-36.0); MEAN CORPUSCULAR VOLUME 98 fL (82-100); MONOCYTES % (AUTO) 11.2 % (2.0-12.0); NEUTROPHILS # (AUTO) 14.5 K/uL (1.8-8.9); NEUTROPHILS % (AUTO) 81.4 % (43.0-81.0); PLATELET COUNT (AUTO) 200 K/uL (150-450); RED BLOOD CELL COUNT(AUTO) 2.28 MIL/uL (4.0-5.2); RED CELL DISTRIBUTION WIDTH 17.4 % (11.5-15.0); WHITE BLOOD COUNT (AUTO) 17.8 K/uL (4.3-11.0)
[2024-06-01 16:00] VITALS: BP 113/58; TEMP 98.1; O2SAT 97
[2024-06-01 20:00] VITALS: BP 104/59; TEMP 98.1; O2SAT 97
[2024-06-02] VITALS (7 sets, daily range): BP systolic 92–109; BP diastolic 59–72; TEMP 97.3–100; O2SAT 98–100
[2024-06-02] MEDS: MEROPENEM 1 G in IV NS 0.9% 100 ML IV SCH (12:06)
[2024-06-02 13:20] LABS: CALCIUM, SERUM 8.5 mg/dL (8.5-10.1); POTASSIUM 3.3 mmol/L (3.5-5.1)
[2024-06-02 14:12] LABS: BASOPHILS # (AUTO) 0.1 K/uL (0.0-0.2); BASOPHILS % (AUTO) 0.7 % (0.0-2.0); EOSINOPHILS # (AUTO) 0.5 K/uL (0.0-0.7); EOSINOPHILS % (AUTO) 3.1 % (0.0-6.0); LYMPHOCYTES # (AUTO) 0.8 K/uL (0.8-4.8); LYMPHOCYTES % (AUTO) 5.3 % (20.0-44.0); MEAN CORPUSCULAR HEMOGLOBIN 32 PG (26.0-33.0); MEAN CORPUSCULAR HGB CONC 33 g/dl (31.0-36.0); MEAN CORPUSCULAR VOLUME 96 fL (82-100); MONOCYTES # (AUTO) 1.9 K/uL (0.1-1.30); MONOCYTES % (AUTO) 12.2 % (2.0-12.0); NEUTROPHILS # (AUTO) 12.1 K/uL (1.8-8.9); NEUTROPHILS % (AUTO) 78.7 % (43.0-81.0); PLATELET COUNT (AUTO) 194 K/uL (150-450); RED BLOOD CELL COUNT(AUTO) 2.03 MIL/uL (4.0-5.2); RED CELL DISTRIBUTION WIDTH 17.7 % (11.5-15.0); WHITE BLOOD COUNT (AUTO) 15.3 K/uL (4.3-11.0)
[2024-06-02 14:15] LABS: HEMATOCRIT 20 % (33-45)
[2024-06-02 14:18] LABS: HEMOGLOBIN 6.5 g/dL (11.5-14.8)
[2024-06-02 17:14] LABS: BAND % (MANUAL) 6 % (0.0-5.0); EOSINOPHILS % (MANUAL) 1 % (0-4); LYMPHOCYTES % (MANUAL) 6 % (16-48); MONOCYTES % (MANUAL) 9 % (0-11.0); NEUTROPHILS % (MANUAL) 78 (42-76); PLATELET ESTIMATE ADEQUATE
[2024-06-02 17:15] LABS: ANISOCYTOSIS 2+; HYPOCHROMASIA 1+
[2024-06-02] MEDS: ACETAMINOPHEN 325 MG TABLET PO PRN (22:19)
[2024-06-03] VITALS (7 sets, daily range): BP systolic 99–114; BP diastolic 61–90; TEMP 97.1–99.9; O2SAT 92–100
[2024-06-03 05:52] LABS: BASOPHILS # (AUTO) 0.1 K/uL (0.0-0.2); BASOPHILS % (AUTO) 0.7 % (0.0-2.0); EOSINOPHILS % (AUTO) 5.3 % (0.0-6.0); HEMATOCRIT 29 % (33-45); HEMOGLOBIN 9.7 g/dL (11.5-14.8); LYMPHOCYTES # (AUTO) 1.1 K/uL (0.8-4.8); MEAN CORPUSCULAR HEMOGLOBIN 32 PG (26.0-33.0); MEAN CORPUSCULAR HGB CONC 34 g/dl (31.0-36.0); MEAN CORPUSCULAR VOLUME 95 fL (82-100); MONOCYTES # (AUTO) 2.3 K/uL (0.1-1.30); MONOCYTES % (AUTO) 12.3 % (2.0-12.0); NEUTROPHILS # (AUTO) 14.5 K/uL (1.8-8.9); NEUTROPHILS % (AUTO) 75.7 % (43.0-81.0); PLATELET COUNT (AUTO) 209 K/uL (150-450); RED BLOOD CELL COUNT(AUTO) 3.01 MIL/uL (4.0-5.2); WHITE BLOOD COUNT (AUTO) 19.1 K/uL (4.3-11.0)
[2024-06-03 06:08] LABS: CALCIUM, SERUM 8.7 mg/dL (8.5-10.1); CARBON DIOXIDE 33 mmol/L (21-32); CHLORIDE 106 mmol/L (98-107); CREATININE 2.6 mg/dL (0.6-1.3); GLUCOSE 109 mg/dL (74-106); POTASSIUM 3.1 mmol/L (3.5-5.1); SODIUM SERUM 144 mmol/L (136-145); UREA NITROGEN, BLOOD 27 mg/dL (7-18)
[2024-06-03] MEDS: POTASSIUM CHLORIDE 20 MEQ TAB.PRT.SR PO ONE (09:53)
[2024-06-03] MEDS: OXCARBAZEPINE 150 MG TABLET PO SCH (10:24)
[2024-06-03] MEDS: MEROPENEM 500 MG in IV NS 0.9% 100 ML IV SCH (14:18)
[2024-06-04 04:00] VITALS: BP 121/59; TEMP 98.4; O2SAT 99
[2024-06-04 07:00] LABS: BASOPHILS # (AUTO) 0.1 K/uL (0.0-0.2); BASOPHILS % (AUTO) 0.7 % (0.0-2.0); EOSINOPHILS % (AUTO) 5.9 % (0.0-6.0); HEMATOCRIT 29 % (33-45); HEMOGLOBIN 9.5 g/dL (11.5-14.8); LYMPHOCYTES # (AUTO) 1.1 K/uL (0.8-4.8); LYMPHOCYTES % (AUTO) 6.4 % (20.0-44.0); MEAN CORPUSCULAR HEMOGLOBIN 31 PG (26.0-33.0); MEAN CORPUSCULAR HGB CONC 32 g/dl (31.0-36.0); MEAN CORPUSCULAR VOLUME 95 fL (82-100); MONOCYTES # (AUTO) 1.9 K/uL (0.1-1.30); NEUTROPHILS # (AUTO) 13.1 K/uL (1.8-8.9); PLATELET COUNT (AUTO) 206 K/uL (150-450); RED BLOOD CELL COUNT(AUTO) 3.08 MIL/uL (4.0-5.2); WHITE BLOOD COUNT (AUTO) 17.3 K/uL (4.3-11.0)
[2024-06-04 07:08] LABS: ALBUMIN 2.8 g/dL (3.4-5.0); BILIRUBIN,TOTAL 1.1 mg/dL (0.2-1.0); CALCIUM, SERUM 8.8 mg/dL (8.5-10.1); CREATININE 3.1 mg/dL (0.6-1.3); MAGNESIUM 2.2 mg/dL (1.8-2.4); POTASSIUM 3.7 mmol/L (3.5-5.1); TOTAL PROTEIN, SERUM 5.8 g/dL (6.4-8.2)
[2024-06-04 08:00] VITALS: BP 123/53; TEMP 97.3; O2SAT 96
[2024-06-04 16:00] VITALS: BP 104/72; TEMP 98.4; O2SAT 95
[2024-06-04 20:00] VITALS: BP 98/63; TEMP 98.6; O2SAT 100
[2024-06-05 04:00] VITALS: BP 108/71; TEMP 98.2; O2SAT 100
[2024-06-05 08:00] VITALS: BP 132/67; TEMP 97.5; O2SAT 99
[2024-06-05 13:05] LABS: BASOPHILS # (AUTO) 0.1 K/uL (0.0-0.2); BASOPHILS % (AUTO) 0.8 % (0.0-2.0); EOSINOPHILS # (AUTO) 0.5 K/uL (0.0-0.7); EOSINOPHILS % (AUTO) 3.7 % (0.0-6.0); HEMATOCRIT 26 % (33-45); HEMOGLOBIN 8.6 g/dL (11.5-14.8); LYMPHOCYTES # (AUTO) 0.9 K/uL (0.8-4.8); LYMPHOCYTES % (AUTO) 6.1 % (20.0-44.0); MEAN CORPUSCULAR HEMOGLOBIN 32 PG (26.0-33.0); MEAN CORPUSCULAR HGB CONC 33 g/dl (31.0-36.0); MEAN CORPUSCULAR VOLUME 95 fL (82-100); MONOCYTES # (AUTO) 1.7 K/uL (0.1-1.30); MONOCYTES % (AUTO) 12.2 % (2.0-12.0); NEUTROPHILS % (AUTO) 77.2 % (43.0-81.0); PLATELET COUNT (AUTO) 146 K/uL (150-450); RED BLOOD CELL COUNT(AUTO) 2.72 MIL/uL (4.0-5.2); RED CELL DISTRIBUTION WIDTH 16.6 % (11.5-15.0); WHITE BLOOD COUNT (AUTO) 14.2 K/uL (4.3-11.0)
[2024-06-05 13:17] LABS: CALCIUM, SERUM 8.9 mg/dL (8.5-10.1)
[2024-06-05 16:00] VITALS: BP 124/78; TEMP 97.8; O2SAT 96
[2024-06-05 20:00] VITALS: BP 97/58; TEMP 99.3; O2SAT 96
[2024-06-06 04:00] VITALS: BP 117/70; TEMP 98.5; O2SAT 96
[2024-06-06 06:49] LABS: BASOPHILS # (AUTO) 0.1 K/uL (0.0-0.2); BASOPHILS % (AUTO) 0.9 % (0.0-2.0); EOSINOPHILS # (AUTO) 0.7 K/uL (0.0-0.7); EOSINOPHILS % (AUTO) 4.5 % (0.0-6.0); HEMATOCRIT 26 % (33-45); HEMOGLOBIN 8.8 g/dL (11.5-14.8); LYMPHOCYTES # (AUTO) 1.4 K/uL (0.8-4.8); LYMPHOCYTES % (AUTO) 9.5 % (20.0-44.0); MEAN CORPUSCULAR HEMOGLOBIN 32 PG (26.0-33.0); MEAN CORPUSCULAR HGB CONC 34 g/dl (31.0-36.0); MEAN CORPUSCULAR VOLUME 95 fL (82-100); MONOCYTES # (AUTO) 2.1 K/uL (0.1-1.30); MONOCYTES % (AUTO) 14.3 % (2.0-12.0); NEUTROPHILS # (AUTO) 10.3 K/uL (1.8-8.9); NEUTROPHILS % (AUTO) 70.8 % (43.0-81.0); PLATELET COUNT (AUTO) 162 K/uL (150-450); RED BLOOD CELL COUNT(AUTO) 2.73 MIL/uL (4.0-5.2); RED CELL DISTRIBUTION WIDTH 16.8 % (11.5-15.0); WHITE BLOOD COUNT (AUTO) 14.6 K/uL (4.3-11.0)
[2024-06-06 07:05] LABS: CALCIUM, SERUM 9.1 mg/dL (8.5-10.1); CREATININE 3.4 mg/dL (0.6-1.3)
[2024-06-06 08:00] VITALS: BP 110/73; TEMP 97.7; O2SAT 99
[2024-06-06 16:00] VITALS: BP 97/47; TEMP 98.1; O2SAT 99
[2024-06-06 20:00] VITALS: BP 90/54; TEMP 98.8; O2SAT 99
[2024-06-06] MEDS ORDERED: ALBUMIN 25% 100 ML IV ONE (21:24)
[2024-06-07] VITALS: BP 98/55; TEMP 98.8; O2SAT 99
[2024-06-07 04:00] VITALS: BP 110/71; TEMP 98.6; O2SAT 98
[2024-06-07 07:07] LABS: BASOPHILS # (AUTO) 0.1 K/uL (0.0-0.2); BASOPHILS % (AUTO) 0.7 % (0.0-2.0); EOSINOPHILS # (AUTO) 0.6 K/uL (0.0-0.7); EOSINOPHILS % (AUTO) 4.5 % (0.0-6.0); HEMATOCRIT 24 % (33-45); HEMOGLOBIN 7.9 g/dL (11.5-14.8); LYMPHOCYTES % (AUTO) 7.8 % (20.0-44.0); MEAN CORPUSCULAR HEMOGLOBIN 32 PG (26.0-33.0); MEAN CORPUSCULAR HGB CONC 33 g/dl (31.0-36.0); MEAN CORPUSCULAR VOLUME 96 fL (82-100); MONOCYTES # (AUTO) 1.6 K/uL (0.1-1.30); MONOCYTES % (AUTO) 12.8 % (2.0-12.0); NEUTROPHILS # (AUTO) 9.4 K/uL (1.8-8.9); NEUTROPHILS % (AUTO) 74.2 % (43.0-81.0); PLATELET COUNT (AUTO) 133 K/uL (150-450); RED BLOOD CELL COUNT(AUTO) 2.48 MIL/uL (4.0-5.2); RED CELL DISTRIBUTION WIDTH 17.1 % (11.5-15.0); WHITE BLOOD COUNT (AUTO) 12.7 K/uL (4.3-11.0)
[2024-06-07 08:00] VITALS: BP 100/64; TEMP 97.9; O2SAT 99
[2024-06-07 08:38] LABS: CALCIUM, SERUM 8.6 mg/dL (8.5-10.1); CREATININE 2.5 mg/dL (0.6-1.3); PHOSPHORUS 2.8 mg/dL (2.5-4.9)
[2024-06-07] MEDS: MEROPENEM 500 MG in IV NS 0.9% 50 ML IV SCH (12:08)
[2024-06-07 16:00] VITALS: BP 106/72; TEMP 98.4; O2SAT 98
[2024-06-07 20:00] VITALS: BP 111/60; TEMP 98.6; O2SAT 100
[2024-06-08 04:00] VITALS: BP 117/59; TEMP 98.4; O2SAT 98
[2024-06-08 07:56] LABS: BASOPHILS # (AUTO) 0.1 K/uL (0.0-0.2); BASOPHILS % (AUTO) 0.5 % (0.0-2.0); EOSINOPHILS # (AUTO) 0.7 K/uL (0.0-0.7); EOSINOPHILS % (AUTO) 5.6 % (0.0-6.0); HEMATOCRIT 25 % (33-45); HEMOGLOBIN 8.3 g/dL (11.5-14.8); LYMPHOCYTES # (AUTO) 0.9 K/uL (0.8-4.8); LYMPHOCYTES % (AUTO) 7.3 % (20.0-44.0); MEAN CORPUSCULAR HEMOGLOBIN 32 PG (26.0-33.0); MEAN CORPUSCULAR HGB CONC 33 g/dl (31.0-36.0); MEAN CORPUSCULAR VOLUME 97 fL (82-100); MONOCYTES # (AUTO) 1.9 K/uL (0.1-1.30); MONOCYTES % (AUTO) 15.1 % (2.0-12.0); NEUTROPHILS # (AUTO) 9.2 K/uL (1.8-8.9); NEUTROPHILS % (AUTO) 71.5 % (43.0-81.0); PLATELET COUNT (AUTO) 140 K/uL (150-450); RED BLOOD CELL COUNT(AUTO) 2.59 MIL/uL (4.0-5.2); RED CELL DISTRIBUTION WIDTH 17.5 % (11.5-15.0); WHITE BLOOD COUNT (AUTO) 12.8 K/uL (4.3-11.0)
[2024-06-08 08:00] VITALS: BP 110/67; TEMP 97.9; O2SAT 94
[2024-06-08 08:11] LABS: CALCIUM, SERUM 8.8 mg/dL (8.5-10.1); CREATININE 2.5 mg/dL (0.6-1.3); MAGNESIUM 2.1 mg/dL (1.8-2.4); PHOSPHORUS 2.5 mg/dL (2.5-4.9); POTASSIUM 4.1 mmol/L (3.5-5.1)
[2024-06-08] MEDS ORDERED: MERO500P IV (10:54)
== END 2024-06-08 16:40 | disposition hospice, home (50) | DRG 981 ==
LOC: ER 19:21 → TELE1 23:07 → TELE-TD 23:18 → TELE1 05-30 09:41 → MEDSG1 05-31 10:04
PROVIDERS: ADMIT Nurse Practitioner Acute Care; ATTEND Nurse Practitioner Acute Care
PROC: 5A1D70Z Performance of Urinary Filtration, Intermittent, Less than 6 Hours Per Day (ICD-10-PCS; principal; 2024-05-30)
PROC: 30233N1 Transfusion of Nonautologous Red Blood Cells into Peripheral Vein, Percutaneous Approach (ICD-10-PCS; 2024-06-02)
PROC: 0KBN0ZZ Excision of Right Hip Muscle, Open Approach (ICD-10-PCS; 2024-06-05)
PROC: 0KBP0ZZ Excision of Left Hip Muscle, Open Approach (ICD-10-PCS; 2024-06-05)
DX: T83.518A Infection and inflammatory reaction due to other urinary catheter, initial encounter (principal); A41.9 Sepsis, unspecified organism; L89.154 Pressure ulcer of sacral region, stage 4; G92.8 Other toxic encephalopathy; N18.6 End stage renal disease; R65.20 Severe sepsis without septic shock; E44.0 Moderate protein-calorie malnutrition; D68.59 Other primary thrombophilia; R18.8 Other ascites; F03.93 Unspecified dementia, unspecified severity, with mood disturbance; B37.49 Other urogenital candidiasis; I12.0 Hypertensive chronic kidney disease with stage 5 chronic kidney disease or end stage renal disease; D63.8 Anemia in other chronic diseases classified elsewhere; E87.6 Hypokalemia; E88.09 Other disorders of plasma-protein metabolism, not elsewhere classified; F31.9 Bipolar disorder, unspecified; H40.9 Unspecified glaucoma; I25.10 Atherosclerotic heart disease of native coronary artery without angina pectoris; I73.9 Peripheral vascular disease, unspecified; J44.9 Chronic obstructive pulmonary disease, unspecified; G40.909 Epilepsy, unspecified, not intractable, without status epilepticus; Y84.6 Urinary catheterization as the cause of abnormal reaction of the patient, or of later complication, without mention of misadventure at the time of the procedure; Y92.129 Unspecified place in nursing home as the place of occurrence of the external cause; Z87.440 Personal history of urinary (tract) infections; Z79.01 Long term (current) use of anticoagulants; Z95.2 Presence of prosthetic heart valve; E83.9 Disorder of mineral metabolism, unspecified; K74.60 Unspecified cirrhosis of liver; Z90.49 Acquired absence of other specified parts of digestive tract; Z99.2 Dependence on renal dialysis; Z86.19 Personal history of other infectious and parasitic diseases; I71.21 Aneurysm of the ascending aorta, without rupture; Z74.09 Other reduced mobility; Z20.822 Contact with and (suspected) exposure to COVID-19; R62.7 Adult failure to thrive; Z68.26 Body mass index [BMI] 26.0-26.9, adult; L89.526 Pressure-induced deep tissue damage of left ankle; L89.516 Pressure-induced deep tissue damage of right ankle; S81.811A Laceration without foreign body, right lower leg, initial encounter; X58.XXXA Exposure to other specified factors, initial encounter; Y93.9 Activity, unspecified; L89.616 Pressure-induced deep tissue damage of right heel; L89.892 Pressure ulcer of other site, stage 2; L89.216 Pressure-induced deep tissue damage of right hip; L89.126 Pressure-induced deep tissue damage of left upper back; M24.574 Contracture, right foot; M24.575 Contracture, left foot; L89.620 Pressure ulcer of left heel, unstageable; N20.0 Calculus of kidney
CPT/HCPCS: 36415; 71045-TC; 71250-TC; 74018; 80048-TC; 80053-TC; 80076-TC; 81001; 83605-TC; 83735-TC; 84100-TC; 84484-TC; 85025-TC; 85730-TC; 86706; 86850-TC; 87040-TC; 87081-TC; 87086-TC; 87340; 90935-TC; A4216; A4223; A6253; A6403; G0378; J0885; J1450; J2185; J2543; J3370; J3490; J7030; J7050; J7060; P9016; P9047